=== PATIENT | male | born 1980 | race African-American/Black ===

== ENCOUNTER 2024-11-07 14:13 | Inpatient (IN) | payer BC, SELFPAY ==
[2024-11-07] VITALS (69 sets, daily range): BP systolic 98–176; BP diastolic 54–140; BMI 50.3
[2024-11-07 11:39] LABS: Glucose - Point of Care 345 mg/dl (70-99)
--- NOTE | 2024-11-07 11:45 | ED.GENMED ---
History of Present Illness
General
Chief Complaint: Chest Pain
Source: patient and ambulance crew
Exam Limitations: none
Time Seen by Provider: 11/07/24 11:34
Nursing documentation reviewed up to this point in time: agreed with
History of Present Illness
History of Present Illness:
Patient presents to ED secondary to witnessed syncopal episode while he was at work this morning. Patient denies any symptoms when he first presented to work. He was in standing position, lifting weights, when he felt generalized weakness. Denies
preceding chest pain or shortness of breath. Upon waking up, patient experiencing extreme shortness of breath along with substernal chest tightness. Denies previous history of similar symptoms. Denies smoking or drinking alcohol. Denies recent
illness. Denies recent trauma. Denies headache or neck pain. Denies nausea or vomiting. There is significant history of heart disease, with both parents having from MS. Patient has history of hypertension. Denies recent travel or
surgery.
Review of Systems
Review of Systems
Allergies reviewed?: Yes
All Other Systems: ROS reviewed and negative except as documented in HPI and ROS
Constitutional: Reports no symptoms
EENT: Reports no symptoms
Respiratory: Reports trouble breathing
Cardiac: Reports chest pain
ABD/GI: Reports no symptoms
Musculoskeletal: Reports no symptoms
Skin: Reports no symptoms
Neurological: Reports weakness
Phy Exam
Physical Exam
Physical Exam:
Physical Exam
General: moderate respiratory distress, acutely ill. afebrile. overweight. diaphoretic
Head: nc/at. eomi
Neck: supple. no meningeal signs.
Heart: tachycardic without murmur
Lungs: moderate respiratory distress. diminished breath sounds bilaterally
Abdomen: normal bowel sounds. not tender.
Neuro: alert and oriented x 3. no focal neurological deficits
Skin: no rash
Psychiatric: well kept. interactive and cooperative
Extremities: no edema. no calf tenderness.
Scores
Heart Score for Chest Pain Patients
STEMI patient?: Not applicable
Course
Orders/Labs/Results
Orders:
Orders
11/07/24
Electrocardiogram (*1) Stat
Reason for Study: Chest Pain
Comment: DONE
11/07/24 11:31
Electrocardiogram (*1) Urgent
Reason for Study: Other
Other Reason for Exam: Respiratory Distress
Cardiac Monitoring- Treatment ONCE
EKG- Treatment ONCE
IV Insert/Care/Rem.- Treatment PRN
O2 Therapy [RESP] Urgent
Titrate/Wean O2 to maintain O2 sat greater than (%): 93
Special Instructions: TO MAINTAIN CONTINUOUS O2 SATS >/= 93%
Pulse Ox/cont/shift [RESP] Urgent
Quantity: 1
Special Instructions: continuous pulse ox
11/07/24 11:37
Complete Blood Count/With Diff Urgent
Comprehensive Metabolic Panel Urgent
NT-proBNP Urgent
Troponin I Urgent
11/07/24 11:39
CT Chest/abd/pelvis Angio W/wo Urgent
Comment:
Reason For Exam: chest/abd pain
11/07/24 11:45
Nitroglycerin 100 mg/250 ml [Nitroglycerin Premix] 100 mg in 250 ml IV PER PROTOCOL
Initial dose in mcg/min, then titrate:: 50
Titrate to keep:: SBP < 160 mmHg
Titrate by mcg/min:: 5 mcg/min, may increase by 10 mcg/min if dose > 20 mcg/min
Frequency of titrations (minutes):: every 3-5 minutes
Maximum dose in mcg/min:: 200
Begin to taper infusion when:: Remained at goal for 2hrs
Taper by mcg/min:: 5 mcg/min
Frequency of taper (minutes) if patient maintains goal:: 30
Taper to off?: Yes
If infusion off & no longer maintaining goal:: Contact Provider
11/07/24 11:59
Heparin 10,000 units IV NOW STA
Nursing to Place Non Medication Order As Directed
Physician Order: PTT 6 hours after initial start of Heparin infusion
Above order entered?: Yes
11/07/24 12:00
Heparin 81088 Units/250 ml 25,000 units in 250 ml IV PER PROTOCOL
Weight to be used for heparin protocol in kilograms (kg):: 168.1
Protocol:: DVT/PE
PTT Goal Range to be used:: PTT 73 to 111 seconds
Order type:: Initial
INITIAL Infusion Dose (UNITS/KG/hr) & then follow protocol:: 18 units/kg/hr
Infusion Dose in UNITS/hr & then follow protocol (UNITS/hr):: 2,000
INFUSION RATE in mL/hr & then follow protocol (mL/hr):: 20
For DVT/PE algorithm, re-bolus for low PTT?: Yes
PTT less than or equal to 64 seconds:: Re-bolus 80 units/kg (max 10,000units). Increase by 500 units/hr
(+ 5mL/hr)
PTT 64.1 to 72.9 seconds:: Re-bolus 40 units/kg (max 5,000 units). Increase by 300 units/hr
(+ 3mL/hr)
PTT 73 to 111 seconds:: Target Range. No change in rate.
PTT 111.1 to 130.9 seconds:: Decrease rate by 300 units/hr (- 3 mL/hr)
PTT 131 to 199.9 seconds:: HOLD for 1 hr. Then decrease by 400 units/hr (- 4mL/hr)
PTT greater than or equal to 200 seconds:: HOLD for 2 hrs & Notify Provider. Then decrease by 500 units/hr
(- 5mL/hr)
Lab follow-up:: Each change, PTT q6h until 2 consecutive are therapeutic. Then
PTT daily.
11/07/24 12:08
Heparin 10,000 units IV PRN PRN
11/07/24 12:09
Heparin 5,000 units IV PRN PRN
11/07/24 12:11
PTT Urgent
Comment: Obtain baseline before beginning heparin infusion if not already collected
Prothrombin Time Urgent
Is patient on Coumadin/Warfarin?: No
Comment: ADD ON
11/07/24 12:12
PTT Routine
11/07/24 12:15
PTT Urgent
Comment: Obtain baseline before beginning heparin infusion if not already collected
11/07/24 12:38
CT Head W/o Iv Contrast Urgent
Comment:
Reason For Exam: trauma
11/07/24 12:51
Admit/Transfer Patient As Directed
Co-Sign Provider:
Level of Care: Inpatient admission
Assign to:: ICU
Physician / Group: ynes
Diagnosis: acute PE, syncope
Reason for Hospitalization: acute PE, syncope
Expected length of stay greater than two midnights?: Yes
ELOS- Estimated Length of Stay in days: 3
I certify the patient meets the requirements for IP care: Yes
11/07/24 12:56
Add On- LAB Stat
Tests Added?: PT/INR please do off ED PTT
11/07/24 14:14
Network Administrator Consult Urgent
Consulting Provider: Milton Linder
Was physician already notified: Yes
Reason for consult: PERT alert
Network Administrator Consult Urgent
Consulting Provider: Phuc Patel
Was physician already notified: Yes
Reason for consult: PERT alert
11/07/24 18:15
PTT Routine
11/07/24 20:00
Budesonide/Formoterol 160/4.5 [Symbicort 160/4.5 Mcg Inhaler] 2 puff INH R BID
11/08/24 08:00
Atorvastatin [Lipitor] 40 mg PO DAILY
Abnormal Lab Results
11/07/24
11:37
MCH 26.6 L pg
(27.0-31.0)
MCHC 32.0 L g/dL
(33.0-37.0)
MPV 10.8 H fL
(7.4-10.4)
Abs Immat Gran (auto) 0.1 H 10^3/uL
(0-0.05)
Absolute Lymphs (auto) 5.2 H 10^3/uL
(1.2-3.4)
Absolute Monos (auto) 0.7 H 10^3/uL
(0.1-0.6)
Neutrophils % 37.8 L %
(42.2-75.2)
Lymphocytes % 51.4 H %
(20.5-51.1)
Carbon Dioxide 19 L mmol/L
(22-30)
Creatinine 3.5 H mg/dL
(0.7-1.3)
Glucose 388 H mg/dl
(70-99)
POC Glucose 345 H mg/dl
(70-99)
11/07/24 11:37
11/07/24 11:37
Vital Signs
Initial and Last Documented VS:
Initial Vital Signs
Pulse BP Pulse Ox
107 168/137 91
11/07/24 11:32 11/07/24 11:32 11/07/24 11:32
Last Documented Vital Signs
Temp Pulse Resp BP Pulse Ox
99 F 105 16 144/112 95
11/07/24 14:49 11/07/24 15:05 11/07/24 15:05 11/07/24 15:05 11/07/24 15:05
MDM/Problems Addressed
MDM/Problems Addressed:
Stat CT angiogram of chest abdomen pelvis ordered, with significant clinical suspicion for acute dissection, less likely pulmonary embolism.
Preliminary CT angiogram report received from radiology -right-sided PE without obvious evidence of right heart strain.
Patient requiring high flow oxygen secondary to hypoxia. Blood pressure we continue to monitor.
Discussed with on-call pulmonary, Dr. Linder, who recommends IR review CT angiogram for potential IR intervention, i.e. local IV tPA administration.
Discussed with IR attending, Dr. Tuttle, via Sandy text, with request to review CTA
Patient started on heparin protocol and will be admitted to ICU for further evaluation and treatment.
Discussed with patient's spouse at bedside and discussed all findings.
Critical care statement: A total of 40 minutes of critical care time was provided for this patient. This includes management of unstable vital signs, evaluation of the patient at bedside, reviewing the patient's pertinent medical records, discussion
with consultants, review of old EKGs and review of pertinent medical records. This time with separate from time utilized to perform the aforementioned documented procedures
*Pulse Oximetry
SaO2: 91
Oxygen Mode of Delivery: Non-rebreather mask
Patient hypoxic: yes
*EKG
Interpreted by ED Provider?: Yes
EKG Intrepretation Date: 11/07/24
Heart Rate: 104
Rate: tachycardiac
Rhythm: sinus
[place]: normal axis
Interval: normal interval
Ischemia: ST depression
*Critical Care Note
Total Time (30-74mins, 75-104mins- exclusive of procedures): 40 min
ED Attending Note
-
Portions of this chart may have been created with voice recognition software.� Occasional wrong word or��sound alike� substitutions may have occurred due to the inherent limitations of voice recognition software.
Discharge Plan
Departure
Patient Disposition: Admit
Date of Disposition: 11/07/24
Time of Disposition: 12:25
Admit to: ICU
Presentation/result/management discussed w/ accepting MD/DO: Hospitalist
Discharge Problem:
Pulmonary embolism
Interventions
Interventions:
*Risk Screen - Suicide Last Done: 11/07/24 14:44
*Nursing Disposition Last Done: 11/07/24 14:17
ED- Cardiac Assessment Last Done: 11/07/24 11:40
Discharge Date and Time
Discharge Date/Time: 11/07/24 14:18
[2024-11-07] MEDS: HEPARIN 10000 UNITS IV (12:04)
[2024-11-07] MEDS: HEPARIN 25000 UNITS/250 ML IV (12:07)
[2024-11-07 12:38] LABS: Hematocrit 43.1 % (39.0-52.0); Hemoglobin 13.8 g/dL (13.0-18.0); Mean Corp Hgb Conc. 32.0 g/dL (33.0-37.0); Mean Corpuscular Volume 83.0 fL (80.0-94.0); Platelet Count 226 10^3/uL (130-400); Red Cell Dist. Width 14.4 % (11.5-14.5)
[2024-11-07 12:43] LABS: APTT 26.8 Sec (23.4-35.0)
--- NOTE | 2024-11-07 12:44 | HPS.HSE ---
Family Physician
-
Family Physician: NO INTERVIEW UNKNOWN
Chief Complaint
-
Syncope, Hypoxic
History of Present Illness
HPI
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
- passed out at work
- POS prodromal symptoms: lightheadedness, felt warm and felt unwell
- Witness: No convulsions
- Post syncopal episode - SoB and Chest discomfort
- Repost B/l leg swelling last few days
- 911 called by co workers
- No prior HX DVT/PE
At ER
on HFO2
No more Chest discomfort
Risk factors:
- No recent surgery
- No recent travelling
- No recent illness
- No HX ICH
- No recent tooth extraction
Medical History
Past Medical History
Past Medical History: Reports HTN, Hypercholesterolemia and Other (JACKY on CPAP HS )
Past Surgical History: Reports None
Social History
Tobacco: Non-smoker
Alcohol: None
Employment: Employed
Family History
Family History: Not pertinent
Allergies / Home Medications
Allergies reflects when Allergies were last updated in [facility] Study [facility].
Home Medications with original date entered in [facility] Study [facility]
Allergy/Medication List:
Allergies
Allergy/AdvReac Type Severity Reaction Status Date / Time
No Known Allergies Allergy Unverified 11/07/24 12:03
Home Medications
atorvastatin 40 mg tablet 40 mg PO DAILY 11/07/24
budesonide 160 mcg-glycopyr 9 mcg-formot 4.8 mcg/actuation HFA inhaler (Breztri Aerosphere) 1 inh inhalation BID 11/07/24
cholecalciferol (vitamin D3) 25 mcg (1,000 unit) tablet (Vitamin D3) 25 mcg PO DAILY 11/07/24
fluticasone propionate 50 mcg/actuation nasal spray,suspension 1 spray intranasal DAILYPRN PRN congestion 11/07/24
nifedipine 60 mg tablet,extended release 60 mg PO DAILY 11/07/24
sildenafil 100 mg tablet 100 mg PO PRN PRN erectile dysfunction 11/07/24
vitamin E 268 mg (400 unit) capsule 268 mg PO DAILY 11/07/24
Review of Systems
-
Constitutional: Reports No Symptoms
EENT: Reports No Symptoms
Cardiac: Reports No Symptoms, Chest Pain and Syncope
Abdomen/GI: Reports No Symptoms
: Reports No Symptoms
Musculoskeletal: Reports No Symptoms
Skin: Reports No Symptoms
Neurological: Reports Other (syncope )
Endocrine: Reports No Symptoms
Hematologic/Lymphatic: Reports No Symptoms
Psych: Reports No Symptoms
Physical Exam
Vital Signs
Vital Signs
Pulse Resp BP Pulse Ox
111 19 111/64 96
11/07/24 12:20 11/07/24 12:20 11/07/24 12:24 11/07/24 12:20
Physical Exam
General: Comfortable, Conversant and Respiratory Distress
HEENT: NormoCephalic, Moist mucous membranes and Atraumatic
Respiratory: Clear; No Wheezes, Rales or Rhonchi
Cardiac: S1/S2, Regular Rhythm and Tachycardia; No Murmur or Rub
GI: Soft, Non Tender, Non Distended and Normal Bowel Sounds; No Organomegaly
Rectal: Deferred by Provider
Musculoskeletal: No Clubbing, No Cyanosis and No Edema
Skin: No Rash
Neuro: Nonfocal/grossly intact
Psych: Intact Judgment/Insight
Laboratory Results
-
11/07/24 11:37
Laboratory Results
APTT 26.8 Sec (23.4-35.0) 11/07/24 12:11
Data Reviewed
-
CT Scan: Report Reviewed by me
Medical Tests (Nuc Med, Echo, EKG etc): Report Reviewed by me
Lab Data: Labs Reviewed by me
Impression/Plan
-
Relevant Data
Abnormal Lab Results
11/07/24
11:37
MCH 26.6 L
MCHC 32.0 L
MPV 10.8 H
Carbon Dioxide 19 L
Glucose 388 H
POC Glucose 345 H
EKG
SINUS TACHYCARDIA WITH SHORT CO
MARKED ST ABNORMALITY, POSSIBLE INFERIOR SUBENDOCARDIAL INJURY
ABNORMAL ECG
NO PREVIOUS ECGS AVAILABLE
CTA APC final report pending
NO PRIOR hospitalist admission:
ASSESSMENT & PLAN
Pending Rx reconciliation
Acute R sided PE
Acute dyspnea with acute hypoxic RF with inital POx 90% requring HFO2
Tachycardic , Syncope and chest disconfort - clinically under RH strain
No evidence of heart strain on CTA.
- PERT alert
- c/w HFO2
- Hold Vit E
- Heparin gtt
- stop NTG gtt ordered by ER
- IR to review CTA for potential IV tPA
- ICU consulted
JACKY
- on [employer] HELPER CPAP HS
Essential HTN
- Hold Nifedipine
HLD
- on Atorvastatin
DVT Px: Heparin gtt
Full code
ICU
--- NOTE | 2024-11-07 12:45 | CON.INTV ---
Addendum entered and electronically signed by Milton Linder MD 11/07/24 15:01:
serum creatinine now reported significantly elevated at 3.5
Some mild acidosis was also noted in addition to his hyperglycemia
Interventional radiology notified of serum creatinine elevation-minimal dye will need to be utilized-hopefully catheter can be placed, tPA can be given, PA pressures can be measured and may be thrombectomy, however, risks of additional dye induced
kidney injury versus benefits will need to be followed
Check A1c
Reviewed with critical care nursing
Original Note:
Consultation
Consultation Request
Date/Time Consultation Requested: 11/07/2024- 40 5 PM
Date/Time Consultation Performed: 11/07/2024- 40 5 PM
Requesting Provider: Hospitalist
Performing Provider: Dr. Linder
Reason for Consultation: Pulmonary embolism/critical care management
Medical History
-
Chief Complaint: Pulmonary embolism
History of Present Illness:
44-year-old obese non-smoking male presented with sudden onset shortness of breath, witnessed syncopal episode noted to have significant shortness of breath, tachypnea, tachycardia, hypertension and significant hypoxemia requiring high flow oxygen
subsequently noted to have large clot burden pulmonary emboli-histology manager consulted for pulmonary embolism/critical care management 11/07/2024. He has never had a clot. He is not sedentary, ever, he does sit on a chair a lot during his daytime job.
He lives in [place] and works here in [place]. He has never had a clot. He does have a family history of clotting. He was at work and had some shortness of breath and had a near syncopal episode. He denies any current chest pain,
pleurisy, hemoptysis, abdominal pain, and admits to some mild swelling. He states that when he drives in a car his legs do swell up a bit. He did not complain of any abdominal pain, nausea, recent illness. He works out routinely. He does have a
CPAP machine that he wears at nighttime. He goes to [facility] for his [facility]. 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
Past Medical History
Past Medical History: None (Obesity. Hypertension. JACKY on CPAP. Asthma-mild intermittent on albuterol as needed.)
Social History
Tobacco: Non-smoker
Drug: None
Living: With Family
Occupational Exposures: No known asbestos exposure
Environmental Exposures: No known tuberculosis exposure
Family History
Family History: Reviewed & Not Pertinent (Father-'clot', possibly pulmonary embolism) and CAD
Allergies / Home Medications
Allergies
Allergy/AdvReac Type Severity Reaction Status Date / Time
No Known Allergies Allergy Unverified 11/07/24 12:03
Home Medications
�Medication �Instructions �Recorded �Confirmed �Last Taken �Type
atorvastatin 40 mg tablet 40 mg PO DAILY 11/07/24 11/07/24 11/07/24 History
20
budesonide 160 mcg-glycopyr 9 1 inh inhalation BID 11/07/24 11/07/24 Unknown History
mcg-formot 4.8 mcg/actuation HFA
inhaler (Breztri Aerosphere)
cholecalciferol (vitamin D3) 25 25 mcg PO DAILY 11/07/24 11/07/24 Unknown History
mcg (1,000 unit) tablet (Vitamin
D3)
fluticasone propionate 50 1 spray intranasal DAILYPRN PRN 11/07/24 11/07/24 Unknown History
mcg/actuation nasal congestion
spray,suspension
nifedipine 60 mg tablet,extended 60 mg PO DAILY 11/07/24 11/07/24 11/07/24 History
release
sildenafil 100 mg tablet 100 mg PO PRN PRN erectile 11/07/24 11/07/24 Unknown History
dysfunction
vitamin E 268 mg (400 unit) capsule 268 mg PO DAILY 11/07/24 11/07/24 Unknown History
Review of Systems
-
Unable to Obtain full review of systems at this time due to: Other ( per HPI)
Vitals / Labs / Diagnostic Testing
Vital Signs
Pulse Resp BP Pulse Ox
111 19 111/64 96
11/07/24 12:20 11/07/24 12:20 11/07/24 12:24 11/07/24 12:20
Lab Data
11/07/24 11:37
Laboratory Results
11/07/24
12:11
APTT 26.8
Diagnostic Testing:
Physical Exam
-
Exam:
Well-nourished and well-developed in no apparent distress
HEENT-atraumatic, normocephalic
Neck-supple, no JVD, no bruit
Heart-regular rate and rhythm-no murmurs, rubs or gallops
Chest-clear to auscultation, no wheezes, crackles
Back-no tenderness
Abdomen-soft, nontender, nondistended, no hepatosplenomegaly
Extremities-no cyanosis, clubbing, edema and good peripheral pulses
Integument-intact, no rashes, lesions or ecchymosis
Neurology-alert and oriented, nonfocal motor and sensory exam
Assessment
-
44-year-old obese non-smoking male presented with sudden onset shortness of breath, witnessed syncopal episode noted to have significant shortness of breath, tachypnea, tachycardia, hypertension and significant hypoxemia requiring high flow oxygen
subsequently noted to have large clot burden pulmonary emboli-histology manager consulted for pulmonary embolism/critical care management 11/07/2024.
Submassive unprovoked pulmonary emboli with severe hypoxemia, tachycardia and syncopal episode
PESI-116 class IV-high risk, had mild mental status changes which would place his score 176-class V-high risk
Hyperglycemia
Conditions present prior to admission:
Obesity
Hypertension
Asthma-mild intermittent
JACKY on CPAP
Family history [id number] PE
Plan
Patient will be admitted to medical intensive care unit for close observation
Supplemental oxygen as needed-currently on high flow
Aspiration precautions
Incentive spirometry
CT chest personally reviewed-significant right sided clot burden with near complete occlusion right mainstem pulmonary artery
Check echocardiogram
Check lower extremity ultrasound
Patient will eventual require hypercoagulable workup as unprovoked
Full PESI summarized above
Heparin drip initiated
Benefits and risks of thrombolytics therapy were reviewed
Patient has significant tachycardia, significant hypoxemia and had syncopal episode currently-benefits of thrombolytic therapy and possible thrombectomy outweigh the risks-Dr. Linder reviewed with ER physician and interventional radiology
Eventual conversion to oral anticoagulation for minimum of 3-6 months
Hypercoagulable workup/hematology evaluation is recommended with family history and unprovoked nature of this large life-threatening clot
Bedrest �24 hours
Follow hemoglobin
Insulin supplementation as needed
Baseline A1c
DVT prophylaxis-on full anticoagulation
Early nutrition
Early mobilization
Outpatient pulmonary [id number] has freight receiver in [place]
Outpatient sleep apnea [id number] follows at [facility] in [place] for sleep apnea
Outpatient appropriate malignancy screening including colonoscopy and prostate exam
updated at the bedside and benefits and risks of thrombolytics versus conservative standard of care management with anticoagulation were reviewed with patient and extensively. Both understand there is increased risks with thrombolytic
therapy, however, more rapid resolution and critical nature of his current illness dictates more aggressive thrombolytic/thrombectomy maneuver
Recommend outpatient pulmonary/sleep disorders [id number], follow-up CT chest and possible lower extremity ultrasound, hematologic evaluation after appropriate therapy and sleep apnea workup
Critical care statement: A total of 65 minutes of critical care time was provided for this patient today. This includes management of unstable vital signs, evaluation for thrombolytic therapy, management of large pulmonary embolism, evaluation of
the patient at bedside, reviewing the patient's pertinent medical records including radiographs, microbiology, laboratory evaluations, and discussion with primary team, consultants, pharmacy, and critical care nursing.
Diagnostic data:
CT chest abdomen and pelvis 11/07/2024-no official reading, to my eye large clot burden right sided pulmonary emboli with near complete occlusion, minimal left-sided clot burden no severe right sided strain
Data Reviewed
-
PFT: Report reviewed by me
EKG: Report reviewed by me
CT Scan: Image personally visualized and interpreted and Report reviewed by me
Medical Tests (Nuc Med, Echo etc): Report reviewed by me
Labs: Labs reviewed by me
Critical Care Time (in minutes): 65
[2024-11-07 12:49] LABS: ALT (SGPT) 35 U/L (0-50); AST (SGOT) 37 U/L (17-59); Albumin 4.1 g/dl (3.5-5.0); Alkaline Phosphatase 109 U/L (38-126); Blood Urea Nitrogen 18 mg/dl (9-20); Calcium 8.8 mg/dl (8.4-10.2); Carbon Dioxide 19 mmol/L (22-30); Chloride 102 mmol/L (98-107); Glucose 388 mg/dl (70-99); Potassium 3.8 mmol/L (3.5-5.1); Sodium 136 mmol/L (135-145); Total Protein 7.1 g/dl (6.3-8.2)
[2024-11-07 12:54] LABS: Troponin I < 0.012 ng/ml
[2024-11-07 12:55] LABS: Nucleated Red Blood Cells % 0 % (-)
[2024-11-07 13:33] LABS: INR 0.98; PT 13.5 Sec (11.4-14.6)
--- NOTE | 2024-11-07 14:26 | CON.INTV ---
Consultation
Consultation Request
Date/Time Consultation Requested: 2:00 11/07/24
Date/Time Consultation Performed: 2:15 11/07/24
Medical History
-
History of Present Illness:
44yoM PMH asthma, JACKY presenting from syncopal episode from work.
Presented to ED from syncopal episode complaining of severe SOB put on high flow O2. Denies chest pain, calf pain. Reports one sided knee pain. Denies travel, long car ride. 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 He denies a personal hx of clots or
clotting disorder.
Pt follows [facility] with sebd teacher for asthma and JACKY. Uses albuterol as needed. Wears CPAP at home. Served in the [employer] for 10 years.
History from in the room. She reports has a history of 'enlarged heart' and 'thick blood' but no formal diagnosis that she knows. No hx clots. He sees a sweep press operator for hypertension. Denies DM but reports he has been diagnosed as pre-diabetic.
reports that he works here in [place] and commutes an hour from [place] each day, otherwise no long drives or immobility.
FH: father has hx of clot. unknown location, possibly lung
Past Medical History
Past Medical History: Asthma and Other (JACKY)
Social History
Personal:
Allergies / Home Medications
Allergies
Allergy/AdvReac Type Severity Reaction Status Date / Time
No Known Allergies Allergy Unverified 11/07/24 12:03
Home Medications
�Medication �Instructions �Recorded �Confirmed �Last Taken �Type
atorvastatin 40 mg tablet 40 mg PO DAILY 11/07/24 11/07/24 11/07/24 History
20
budesonide 160 mcg-glycopyr 9 1 inh inhalation BID 11/07/24 11/07/24 Unknown History
mcg-formot 4.8 mcg/actuation HFA
inhaler (Breztri Aerosphere)
cholecalciferol (vitamin D3) 25 25 mcg PO DAILY 11/07/24 11/07/24 Unknown History
mcg (1,000 unit) tablet (Vitamin
D3)
fluticasone propionate 50 1 spray intranasal DAILYPRN PRN 11/07/24 11/07/24 Unknown History
mcg/actuation nasal congestion
spray,suspension
nifedipine 60 mg tablet,extended 60 mg PO DAILY 11/07/24 11/07/24 11/07/24 History
release
sildenafil 100 mg tablet 100 mg PO PRN PRN erectile 11/07/24 11/07/24 Unknown History
dysfunction
vitamin E 268 mg (400 unit) capsule 268 mg PO DAILY 11/07/24 11/07/24 Unknown History
Review of Systems
Vitals / Labs / Diagnostic Testing
Vital Signs
Pulse Resp BP Pulse Ox
105 13 139/104 96
11/07/24 13:40 11/07/24 13:40 11/07/24 13:40 11/07/24 13:40
Lab Data
11/07/24 11:37
11/07/24 11:37
Laboratory Results
11/07/24
12:11
PT 13.5
INR 0.98
APTT 26.8
Diagnostic Testing:
Physical Exam
-
HEENT: Normocephalic, Anicteric and Moist Mucous Membranes
Cardiovascular: S1/S2 (tachycardic, no RV heave or P2)
Respiratory: Clear
Neurology: AO x 3
General: Respiratory Distress (on high flow O2)
Assessment
-
44-year-old obese non-smoking male PMH asthma, JACKY presented with sudden onset shortness of breath, witnessed syncopal episode noted to have significant shortness of breath, tachypnea, tachycardia, hypertension and significant hypoxemia requiring
high flow oxygen subsequently noted to have large clot burden pulmonary emboli-awning installer consulted for pulmonary embolism/critical care management 11/07/2024.
Elevated Cr 3.5 with no known CKD. Hyperglycemic to 360. PT 13.5 INR 0.98. On no current blood thinners. Unprovoked PE. Possible FH.
Submassive unprovoked pulmonary emboli with severe hypoxemia, tachycardia and syncopal episode
PESI-116 class IV-high risk, had mild mental status changes which would place his score 176-class V-high risk
Hyperglycemia
Conditions present prior to admission:
Obesity
Hypertension
Plan
Neuro:
Concerns for AMS in ED. Monitor mental status post TPA.
CT head negative for acute hemorrhage.
Pulm:
Supplemental oxygen as needed-currently on high flow
Aspiration precautions
Incentive spirometry
CT chest personally reviewed-significant right sided clot burden with near complete occlusion right mainstem pulmonary artery
Heparin drip initiated
Patient has significant tachycardia, significant hypoxemia and had syncopal episode currently-benefits of thrombolytic therapy and possible thrombectomy outweigh the risks-Dr. Linder reviewed with ER physician and interventional radiology. Sent
down to IR.
Continue home medications
Cardio:
EKG: sinus tachycardia with short [place] [facility] abnormality, possible inferior subendocardial injury
Check echocardiogram
Troponin <0.012. BNP <20
/renal:
Cr 3.5. No hx renal pathology or known baseline Cr
Monitor I+O
Nephrology Consult
Heme:
Bedrest �24 hours
Follow hemoglobin
Check lower extremity ultrasound
Patient will eventual require hypercoagulable workup as unprovoked
Endocrine:
No hx DM. Baseline A1c
Insulin supplementation as needed. Sliding scale started.
DVT prophylaxis-on full anticoagulation
Early nutrition- NPO for procedure
Early mobilization
Outpatient pulmonary follow-up. Follows at [facility].
Diagnostic data:
CT chest abdomen and pelvis 11/07/2024-no official reading, to my eye large clot burden right sided pulmonary emboli with near complete occlusion, minimal left-sided clot burden no severe right sided strain
[2024-11-07 14:29] LABS: Estimated Creatinine Clearance 42 ml/min; eGFR 20.91
--- NOTE | 2024-11-07 15:17 | W.CON.NEPH ---
Consultation
-
Date/Time Consultation Requested: 11/07/2024 3:15 PM
Date/Time Consultation Performed: 11/07/2024 3:20 PM
Requesting Provider: Dr. Linder
Performing Provider: Dr. Conde
Reason for Consultation: Acute kidney injury
Medical History
-
Chief Complaint: Acute kidney injury
History of Present Illness:
The patient is a 44-year-old male with a past medical history of hypertension maintained chronically on nifedipine for his hypertension. He has a history of obstructive sleep apnea and utilizes CPAP. He has a history of dyslipidemia and is
maintained on statin therapy. The patient presented with sudden onset shortness of breath, witnessed syncopal episode noted to have significant shortness of breath, tachypnea, tachycardia, hypertension and significant hypoxemia requiring high flow
oxygen subsequently noted to have large clot burden pulmonary emboli-routeman consulted for pulmonary embolism/critical care management 11/07/2024. He has never had a clot. He is not sedentary, ever, he does sit on a chair a lot during his
daytime job. He lives in [place] and works here in [place]. He has never had a clot. He does have a family history of clotting. He was at work and had some shortness of breath and had a near syncopal episode. He denies any current chest
pain, pleurisy, hemoptysis, abdominal pain, and admits to some mild swelling. He states that when he drives in a car his legs do swell up a bit. He did not complain of any abdominal pain, nausea, recent illness. He works out routinely. He does
have a CPAP machine that he wears at nighttime. He goes to the [place] for his CPAP. 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 Nephrology was consulted for acute renal failure his creatinine was 3.5 on
presentation.
Past Medical History
Hypertension
Obstructive sleep apnea
Asthma
Dyslipidemia
Social History
Tobacco: Non-Smoker
Drug: None
Personal:
Family History
No CKD
Father with history of clot
Allergies / Home Medications
Allergy/AdvReac Type Severity Reaction Status Date / Time
No Known Allergies Allergy Unverified 11/07/24 12:03
�Medication �Instructions �Recorded �Confirmed �Type
atorvastatin 40 mg tablet 40 mg PO DAILY High Cholesterol 11/07/24 11/07/24 History
budesonide 160 mcg-glycopyr 9 1 inh inhalation BID 11/07/24 11/07/24 History
mcg-formot 4.8 mcg/actuation HFA Lung/Breathing Issues
inhaler (Breztri Aerosphere)
cholecalciferol (vitamin D3) 25 25 mcg PO DAILY Supplement 11/07/24 11/07/24 History
mcg (1,000 unit) tablet (Vitamin
D3)
fluticasone propionate 50 1 spray intranasal DAILYPRN PRN 11/07/24 11/07/24 History
mcg/actuation nasal congestion
spray,suspension
nifedipine 60 mg tablet,extended 60 mg PO DAILY Blood Pressure 11/07/24 11/07/24 History
release
sildenafil 100 mg tablet 100 mg PO PRN PRN erectile 11/07/24 11/07/24 History
dysfunction
vitamin E 268 mg (400 unit) capsule 268 mg PO DAILY Supplement 11/07/24 11/07/24 History
Physical Exam
Vital Signs
Vital Signs
Temp Pulse Resp BP Pulse Ox
99 F 105 16 144/112 95
11/07/24 14:49 11/07/24 15:05 11/07/24 15:05 11/07/24 15:05 11/07/24 15:05
Lab Results
11/07/24 11:37
11/07/24 11:37
WBC 10.1 10^3/uL (4.8-10.8) 11/07/24 11:37
RBC 5.19 10^6/uL (4.70-6.10) 11/07/24 11:37
Hgb 13.8 g/dL (13.0-18.0) 11/07/24 11:37
Hct 43.1 % (39.0-52.0) 11/07/24 11:37
Plt Count 226 10^3/uL (130-400) 11/07/24 11:37
Sodium 136 mmol/L (135-145) 11/07/24 11:37
Potassium 3.8 mmol/L (3.5-5.1) 11/07/24 11:37
Chloride 102 mmol/L (98-107) 11/07/24 11:37
Carbon Dioxide 19 mmol/L (22-30) L 11/07/24 11:37
BUN 18 mg/dl (9-20) 11/07/24 11:37
Creatinine 3.5 mg/dL (0.7-1.3) H 11/07/24 11:37
eGFR 20.91 11/07/24 11:37
Glucose 388 mg/dl (70-99) H 11/07/24 11:37
Calcium 8.8 mg/dl (8.4-10.2) 11/07/24 11:37
Stc-E-Zqytgjccmgc Pept < 20.0 pg/ml 11/07/24 11:37
Albumin 4.1 g/dl (3.5-5.0) 11/07/24 11:37
Physical Exam
General: AOx3, Nontoxic , NAD,obese
HEENT: PERRL, EOMI, Anicteric, Conjunctivae Clear, Ear/Nose Intact, Hearing Normal, Oropharynx Clear/Moist, Dentition Intact, Facial Symmetry, Neck Supple, Neck: Trachea Midline, No JVD and No Thyromegaly, no Bruits
Respiratory: Coarse to auscultation bilaterally with normal lung exersion
Cardiac: S1/S2 and Regular Rate/Rhythm tachycardic
Breast: Deferred by me
Abdomen: Soft, Nontender, Nondistended, Normal Bowel Sounds and No Hepatosplenomegaly
Rectal: Deferred by Provider
Genito-urinary: No Costovertebral Tenderness
Extremities: No Clubbing, No Cyanosis and trace Edema
Skin: No Rash or open lesions
Neuro: Nonfocal/Grossly Intact, CN II-XII (Intact) and Strength (Musculoskeletal exam 5 out of 5 both upper and lower extremities)
Hematologic/Lymphatic: No Cervical Lymphadenopathy, No Submandibular Lymphadenopathy and No Supraclavicular Lymphadenopathy
Psych: Mood/afflect pleasant, Insight/judgement good and Appropriate
Vascular: plus 2 pedal and radial pulses
Data Reviewed
-
CT Scan: Report Reviewed by me
Labs: Labs Reviewed by me (BMP CBC)
Assessment/Plan
-
Impression:
Submassive unprovoked pulmonary emboli with severe hypoxemia, tachycardia and syncopal episode (right main pulmonary artery)
Acute kidney injury (3.5)
Hypertension emergency
Dyslipidemia
Obstructive sleep
Plan:
ADRIANA:
- Unfortunately creatinine on presentation was 3.[address] angiogram
-Discussed with who will try to obtain baseline creatinine from primary care physician
- Acute kidney injury risk will be escalated following contrast administrations
- No acute dialysis requirement but will monitor closely
- Will obtain urinalysis urine protein to creatinine ratio kidney and bladder ultrasound to workup for CKD
- Will also obtain autoimmune serology serologies
-Patient is critically ill with acute renal failure and acute pulmonary embolism status post thrombolytic directed therapy via IR
-I will utilize Cardene drip for blood pressure control to keep systolic blood pressure between 130-160 with diastolic pressures between 80-95
- 35 minutes critical care time spent with patient care
- Patient critically ill with uncontrolled hypertension and acute pulmonary artery embolism requiring directed lytic therapy
Total Time Spent with Patient (in minutes): 35mintues
[2024-11-07 15:49] LABS: Glucose - Point of Care 239 mg/dl (70-99)
[2024-11-07] MEDS: NOVOLOG FLEXPEN 8 UNITS SC (15:57)
[2024-11-07] MEDS: CATHFLO/ACTIVASE 1000 MG INF CATH (16:07)
--- NOTE | 2024-11-07 16:20 | W.PN.IRAD.PR ---
Procedure Note
-
Limited pulmonary arteriography performed secondary to renal insufficiency and inability to position table secondary to weight limitation. Right sided central emboli confirmed as seen previous CTA. Mean PA pressure 33 mmHg right, 32 mmHg left.
Thrombolysis infusion initiated at 1mg/hr via infusion catheter in right PA. Heparin via IV at 500 units/hr. The 7 Fr catheter is occlusive in the 7 Fr R CF vein sheath, no sheath infusion.
[2024-11-07] MEDS: CARDENE 200 IV ×2 (17:13→23:30)
[2024-11-07] MEDS: NOVOLOG FLEXPEN-MODERATE RESISTANCE SC ×2 (17:45→23:26)
[2024-11-07 18:20] LABS: Hematocrit 39.0 % (39.0-52.0); Hemoglobin 13.0 g/dL (13.0-18.0); Mean Corp Hgb Conc. 33.3 g/dL (33.0-37.0); Mean Corpuscular Volume 79.1 fL (80.0-94.0); Platelet Count 212 10^3/uL (130-400); Red Cell Dist. Width 14.6 % (11.5-14.5)
[2024-11-07 18:35] LABS: Urine Character Clear (Clear)
[2024-11-07 18:37] LABS: Glucose - Point of Care 171 mg/dl (70-99)
[2024-11-07 18:45] LABS: Urine Squamous Cell 0-2 /LPF (Few)
[2024-11-07 18:46] LABS: Urine White Cell 0-2 /HPF (0-5)
[2024-11-07 19:16] LABS: INR 1.02; PT 13.9 Sec (11.4-14.6)
[2024-11-07 19:17] LABS: APTT 40.4 Sec (23.4-35.0); Fibrinogen 396 MG/DL (199-459)
--- NOTE | 2024-11-07 19:17 | PTCARENOTE ---
Updated assessment vital signs ongoing and as documented. Patient received from ED then rushed immediately to IR. Received back again from IR. Right femoral venous sheath with TPA infusing. Follow up now vascular heparin. Serial labs and urine
collected. Presently TPA, heparin and Cardene infusing continue to follow up orders and plan of cares. Consults with at bedside. [employer] Car Cleaner team and nephrology team with patient continue to update plan of cares and follow up concerns in
ICU. Supportive cares and teaching ongoing.
[2024-11-07] MEDS: OFIRMEV 100 IV (20:53)
--- NOTE | 2024-11-07 21:20 | PTCARENOTE ---
Received pt from previous RN. Pt is AAOx3, neurovascular checks per protocol, flat. Sinus tach/NSR on the monitor. Cardene gtt for goal SBP 140-160 (see worklist). Pt on midflow 15L O2 sat 93%, HORTON, lungs diminished. Pt uses the urinal. Pt with
bruised, swollen lip. TPA and Heparin gtts maintained (see orders). Ofirmev ordered for back pain (see MAR). Mouth care provided. at bedside. Call galo in reach. Safe environment maintained.
--- NOTE | 2024-11-07 21:49 | PTCARENOTE ---
Received pt from previous RN. Pt is AAOx3, neurovascular checks per protocol, flat. Sinus tach/NSR on the monitor. Cardene gtt for goal SBP 140-160 (see worklist). Pt on midflow 15L O2 sat 93%, HORTON, lungs diminished. Pt uses the urinal. Pt with
bruised, swollen lip. TPA infusing through right femoral venous sheath. Heparin gtt. Ofirmev ordered for back pain (see MAR). Mouth care provided. at bedside. Call galo in reach. Safe environment maintained.
[2024-11-07] MEDS: MELATONIN 10 MG PO (21:51)
[2024-11-07 23:36] LABS: Glucose - Point of Care 113 mg/dl (70-99)
[2024-11-08] VITALS (42 sets, daily range): BP systolic 97–167; BP diastolic 64–104; PULSE 98; BMI 46.4
--- NOTE | 2024-11-08 00:18 | PTCARENOTE ---
Systems reviewed, no new changes in assessment. Cardene gtt titrated per protocol (see worklist). Labs provided. Call galo in reach. Safe environment maintained.
[2024-11-08 00:30] LABS: INR 0.99; PT 13.6 Sec (11.4-14.6)
[2024-11-08 00:31] LABS: APTT 28.1 Sec (23.4-35.0); Fibrinogen 406 MG/DL (199-459)
[2024-11-08 00:39] LABS: Hematocrit 38.5 % (39.0-52.0); Hemoglobin 12.8 g/dL (13.0-18.0); Mean Corp Hgb Conc. 33.2 g/dL (33.0-37.0); Mean Corpuscular Volume 79.9 fL (80.0-94.0); Platelet Count 198 10^3/uL (130-400); Red Cell Dist. Width 14.6 % (11.5-14.5)
[2024-11-08] MEDS: CATHFLO/ACTIVASE 1000 MG INF CATH (01:40)
--- NOTE | 2024-11-08 05:03 | PTCARENOTE ---
Systems reviewed, no new changes in assessment. AM labs provided. at bedside. Safe environment maintained.
[2024-11-08] MEDS: NOVOLOG FLEXPEN-MODERATE RESISTANCE 1 UNITS SC ×2 (05:12→12:35)
[2024-11-08 05:18] LABS: Glucose - Point of Care 175 mg/dl (70-99)
[2024-11-08 05:34] LABS: Hematocrit 38.3 % (39.0-52.0); Hemoglobin 12.8 g/dL (13.0-18.0); Mean Corp Hgb Conc. 33.4 g/dL (33.0-37.0); Mean Corpuscular Volume 80.3 fL (80.0-94.0); Platelet Count 181 10^3/uL (130-400); Red Cell Dist. Width 14.7 % (11.5-14.5)
[2024-11-08 05:48] LABS: Fibrinogen 373 MG/DL (199-459); INR 1.08; PT 14.6 Sec (11.4-14.6)
[2024-11-08] MEDS: OFIRMEV 100 IV ×2 (05:50→13:58)
[2024-11-08 06:03] LABS: Blood Urea Nitrogen 15 mg/dl (9-20); Calcium 8.9 mg/dl (8.4-10.2); Carbon Dioxide 27 mmol/L (22-30); Chloride 106 mmol/L (98-107); Estimated Creatinine Clearance 109 ml/min; Glucose 177 mg/dl (70-99); Potassium 4.4 mmol/L (3.5-5.1); Sodium 138 mmol/L (135-145); Uric Acid 6.5 mg/dl (3.5-8.5); eGFR > 60.00
[2024-11-08 06:24] LABS: APTT 30.1 Sec (23.4-35.0)
--- NOTE | 2024-11-08 07:36 | W.PN.INTV ---
Today's Communication / Plan
Recommendations
Thrombolysis successful and will be discontinued
Continue heparin
Eventually convert to oral anticoagulant for minimum of 3-6 months with subsequent hematology evaluation
Monitor renal function
Diabetes education and consider diabetic nurse practitioner consultation
Wean nicardipine and add oral nifedipine
Assessment
-
44-year-old obese non-smoking male presented with sudden onset shortness of breath, witnessed syncopal episode noted to have significant shortness of breath, tachypnea, tachycardia, hypertension and significant hypoxemia requiring high flow oxygen
subsequently noted to have large clot burden pulmonary emboli-cell tower climber consulted for pulmonary embolism/critical care management 11/07/2024.
Submassive unprovoked pulmonary emboli with severe hypoxemia, tachycardia and syncopal episode
PESI-116 class IV-high risk, had mild mental status changes which would place his score 176-class V-high risk
Hyperglycemia-A1c 8.8%
ADRIANA
Hypertensive emergency
Conditions present prior to admission:
Obesity
Hypertension
Asthma-mild intermittent
JACKY on CPAP
Family history [id number] PE
Plan
Remains critically ill but improved hemodynamically with less oxygen requirements
Supplemental oxygen as needed-was on high flow-now reduced to mid flow 8 L - 95% saturation
Aspiration precautions per protocol
Incentive spirometry encouraged
Begin home Breztri as well as albuterol as needed
Bring home CPAP--Will bleed oxygen through CPAP
Assess discharge supplemental oxygen needs
CT chest personally reviewed-significant right sided clot burden with near complete occlusion right mainstem pulmonary artery
Echocardiogram 11/07/2024-EF 60-65%, stage I diastolic dysfunction, mildly dilated right ventricular cavity size, PA systolic 44
Lower extremity ultrasound 11/08/24-no evidence for DVT bilaterally
Patient will eventual require hypercoagulable workup as unprovoked
Full PESI summarized above
Heparin drip continues
Benefits and risks of thrombolytics therapy were reviewed with patient and
Patient has significant tachycardia, significant hypoxemia and had syncopal episode currently-benefits of thrombolytic therapy and possible thrombectomy outweigh the risks-Dr. Linder reviewed with ER physician and interventional radiology on
11/07/2024
PA catheter placed with thrombolysis 11/07/2024
Follow-up pulmonary arteriogram 11/08/2024-improved PA pressures-43/16-day before 51/20, improved parenchymal perfusion, especially in upper lobe, residual central embolism but no longer occlusive-thrombolysis discontinued
Eventual conversion to oral anticoagulation for minimum of 3-6 months
Hypercoagulable workup/hematology evaluation is recommended with family history and unprovoked nature of this large life-threatening clot
Bedrest �24 hours
Renal function improving
Nephrology evaluation noted and appreciated
Nicardipine drip will be weaned
Back on oral nifedipine
Follow hemoglobin
Insulin supplementation as needed
Baseline A1c significantly elevated
Diabetic education
Consult diabetic nurse practitioner-likely will need adjustment in outpatient diabetes medications
DVT prophylaxis-on full anticoagulation
Diabetic diet
Begin to mobilize in the next 12 hours
Outpatient pulmonary [id number] has shaping machine tender in [place]
Outpatient sleep apnea [id number] follows at the [facility] in [place] for sleep apnea
Outpatient appropriate malignancy screening including colonoscopy and prostate exam
updated on 11/07/2024 at the bedside and benefits and risks of thrombolytics versus conservative standard of care management with anticoagulation were reviewed with patient and extensively. Both understand there is increased risks with
thrombolytic therapy, however, more rapid resolution and critical nature of his current illness dictates more aggressive thrombolytic/thrombectomy maneuver
Dr. Linder updated on multidisciplinary rounds 11/08/2024
Recommend outpatient pulmonary/sleep disorders [id number], follow-up CT chest and possible lower extremity ultrasound, hematologic evaluation after appropriate therapy and sleep apnea workup
Critical care statement: A total of 45 minutes of critical care time was provided for this patient today. This includes management of unstable vital signs, evaluation for thrombolytic therapy, management of large pulmonary embolism, evaluation of
the patient at bedside, reviewing the patient's pertinent medical records including radiographs, microbiology, laboratory evaluations, and discussion with primary team, consultants, pharmacy, and critical care nursing.
Diagnostic data:
CT chest abdomen and pelvis 11/07/2024-no official reading, to my eye large clot burden right sided pulmonary emboli with near complete occlusion, minimal left-sided clot burden no severe right sided strain
Subjective Dataa
Subjective Data
Date of Service:
Date of Service: November 08, 2024
Chief Complaint: Wet Chemistry Analyst Follow Up, Pulmonary Follow Up and VTE Follow Up
Subjective:
Feels better, less short of breath, less oxygen requirements, no chest pain, pleurisy, abdominal pain, leg swelling or weakness
Review of Systems
General: Other (Per HPI)
Objective Data
Data Reviewed
Vital Signs / I&O / Oxygen:
Vital Signs
Temp Pulse Resp BP Pulse Ox
98.2 F 92 14 159/93 96
11/08/24 04:08 11/08/24 07:08 11/08/24 07:08 11/08/24 07:08 11/08/24 07:26
Intake and Output
11/07/24 11/08/24 11/09/24
06:59 06:59 06:59
Intake Total 2047.5 / 2152.5 105 / 105
Output Total 1000 / 1200 200 / 200
Balance 1047.5 / 952.5 -95 / -95
SaO2 96
Nasal Cannula flow liters per 7
minute
Physical Exam
General: Respiratory Distress (n) and Comfortable
HEENT: Normocephalic, Anicteric and Moist Mucous Membranes
Cardiovascular: Regular Rhythm, Murmur (n) and Other (No increased P2 or RVE)
Respiratory: Wheeze (n), Crackles (n), Rhonchi (n), Non-Labored Respirations, Accessory Resp Muscle Use (n) and Stridor (n)
GI: Soft, Non Distended and Non Tender
Neurology: Awake, Alert and No Motor Deficits
Skin: Warm, Good Color, Cyanosis (n), Jaundice (n) and Rash (n)
Labs/Micro/Reports
Lab Data
11/08/24 04:56
Laboratory Results
11/07/24 11/07/24 11/07/24
12:11 12:12 12:15
PT 13.5
INR 0.98
APTT 26.8 Cancelled Cancelled
11/07/24 11/08/24 11/08/24
18:09 00:11 04:56
PT 13.9 13.6 14.6
INR 1.02 0.99 1.08
APTT 40.4 H 28.1 30.1
--- NOTE | 2024-11-08 07:54 | W.PN.NEPH.PH ---
Today's Communication / Plan
-
Add back oral Procardia
Assessment/Plan
-
Impression:
Submassive unprovoked pulmonary emboli with severe hypoxemia, tachycardia and syncopal episode (right main pulmonary artery)
Acute kidney injury (3.5)
Hypertension emergency
Dyslipidemia
Obstructive sleep
Plan:
ADRIANA:
- creatinine on presentation was 3.[address] angiogram
-Fortunately creatinine has dropped to 1.3 and patient is nonoliguric at 1200 cc urine output
-Blood pressure control with Cardene drip
-Add back oral nifedipine
- obtained urinalysis urine protein to creatinine ratio kidney and bladder ultrasound to workup for CKD (UA 1 plus blood and 1 plus albumin), blood protein to creatinine ratio only 100 mg
-obtained autoimmune serology serologies which are pending
-presented with acute renal failure and acute pulmonary embolism status post thrombolytic directed therapy via IR
-I will utilize Cardene drip for blood pressure control to keep systolic blood pressure between 130-160 with diastolic pressures between 80-95
- 35 minutes critical care time spent with patient care
- Patient critically ill with uncontrolled hypertension and acute pulmonary artery embolism requiring directed lytic therapy
-
-
Date of Service: November 08, 2024
CC / HPI / ROS
-
Chief Complaint:
adriana
Uncontrolled hypertension
History of Present Illness:
Blood pressure treated with Cardene drip
Creatinine down to 1.3
Review of Systems:
Nonoliguric no chest pain less short of breath
Labs
-
Labs:
Sodium 138 mmol/L (135-145) 11/08/24 04:56
Potassium 4.4 mmol/L (3.5-5.1) 11/08/24 04:56
Chloride 106 mmol/L (98-107) 11/08/24 04:56
Carbon Dioxide 27 mmol/L (22-30) 11/08/24 04:56
BUN 15 mg/dl (9-20) 11/08/24 04:56
Creatinine 1.3 mg/dL (0.7-1.3) 11/08/24 04:56
eGFR > 60.00 11/08/24 04:56
Glucose 177 mg/dl (70-99) H 11/08/24 04:56
Calcium 8.9 mg/dl (8.4-10.2) 11/08/24 04:56
Glq-O-Iakgjswymuz Pept < 20.0 pg/ml 11/07/24 11:37
Albumin 4.1 g/dl (3.5-5.0) 11/07/24 11:37
Physical Exam
-
Vital Signs:
Vital Signs
Temp Pulse Resp BP Pulse Ox
98.2 F 92 14 159/93 96
11/08/24 04:08 11/08/24 07:08 11/08/24 07:08 11/08/24 07:08 11/08/24 07:26
Cardiovascular:: Regular rate and rhythm
Respiratory:: Bilateral: CTA
Lung Excursion:: Normal
Abdomen:: Nontender, Soft and Tender
Bowel Sounds:: Decreased
Extremity Edema:: +1: Bilateral: (Trace)
[place] Catheter: No
[2024-11-08] MEDS: LIPITOR 40 MG PO (08:22)
[2024-11-08] MEDS: PROCARDIA XL (EXTENDED RELEASE) 60 MG PO (08:22)
--- NOTE | 2024-11-08 08:28 | W.PN.INTV ---
Documented by User: Jacque Rocha MD, Resident 11/08/24 10:34
Today's Communication / Plan
Recommendations
plan reviewed with attending
Assessment
-
44-year-old obese non-smoking male PMH asthma, JACKY presented with sudden onset shortness of breath, witnessed syncopal episode noted to have significant shortness of breath, tachypnea, tachycardia, hypertension and significant hypoxemia requiring
high flow oxygen subsequently noted to have large clot burden pulmonary emboli-photographer's assistant consulted for pulmonary embolism/critical care management 11/07/2024.
Creatinine reduced to 1.3. Sugars managed on insulin. HA1c 8.8. LE US demonstrated no DVT bilaterally.
Submassive unprovoked pulmonary emboli with severe hypoxemia, tachycardia and syncopal episode
PESI-116 class IV-high risk, had mild mental status changes which would place his score 176-class V-high risk
Hyperglycemia
ADRIANA
Conditions present prior to admission:
Obesity
Hypertension
Plan
Neuro:
Concerns for AMS in ED. Alert and oriented today asking appropriate questions. Monitor mental status post TPA.
CT head negative for acute hemorrhage.
Pulm:
Supplemental oxygen as needed-currently on NC.
Aspiration precautions
Incentive spirometry
CT chest personally reviewed-significant right sided clot burden with near complete occlusion right mainstem pulmonary artery. IR thrombectomy and tpa catheter currently inserted.
Heparin drip initiated
Patient has resolved tachycardia and hypoxemia
Continue home asthma medications
Cardio:
EKG: sinus tachycardia with short [place] [address] ST abnormality, possible inferior subendocardial injury
Echocardiogram demonstrated stage 1 diastolic dysfunction. Mild tricuspid regurgitation. Possible sequelae of PE.
Troponin <0.012. BNP <20
/renal:
Cr 1.3. Improving Cr. Unknown baseline, takes creatine at home. ADRIANA resolved
Monitor I+O
Nephrology Consult. Recommends transitioning BP medication back to home meds.
Renal US demonstrated no abnormalities.
Heme:
Bedrest �24 hours. Reassess after IR today
Follow hemoglobin
Lower extremity ultrasound negative
Patient will eventual require hypercoagulable workup outpt as unprovoked
Endocrine:
No hx DM. A1c 8.8.
Insulin supplementation as needed. Sliding scale started. 10 units lantus at night.
DVT prophylaxis-on full anticoagulation
Early nutrition- NPO for procedure
Early mobilization
Outpatient pulmonary follow-up. Follows at [facility].
Diagnostic data:
CT chest abdomen and pelvis 11/07/2024-no official reading, to my eye large clot burden right sided pulmonary emboli with near complete occlusion, minimal left-sided clot burden no severe right sided strain
Subjective Dataa
Subjective Data
Date of Service:
Date of Service: November 08, 2024
Subjective:
Today, pt denies SOB, chest pain. He reports lower back pain from lying flat otherwise denies any new symptoms.
Pt reports only PMH HTN, asthma, HLD, JACKY. He remembers having heart studies done with no diagnosis.
Pt reports taking creatine at home at high doses.
Objective Data
Data Reviewed
Vital Signs / I&O / Oxygen:
Vital Signs
Temp Pulse Resp BP Pulse Ox
98.4 F 88 13 148/88 95
11/08/24 07:45 11/08/24 08:22 11/08/24 08:08 11/08/24 08:22 11/08/24 08:15
Intake and Output
11/07/24 11/08/24 11/09/24
06:59 06:59 06:59
Intake Total 2047.5 / 2152.5 210 / 210
Output Total 1000 / 1200 200 / 200
Balance 1047.5 / 952.5
SaO2 95
Nasal Cannula flow liters per 7
minute
Physical Exam
General: Comfortable
HEENT: Normocephalic and Anicteric
Cardiovascular: S1-S2 and Regular Rhythm
Respiratory: Clear and Non-Labored Respirations
Neurology: AO x 3 and No Motor Deficits
Skin: Warm, Dry and Other (tpa catheter in groin)
Labs/Micro/Reports
Lab Data
11/08/24 04:56
Laboratory Results
11/07/24 11/07/24 11/07/24
12:11 12:12 12:15
PT 13.5
INR 0.98
APTT 26.8 Cancelled Cancelled
11/07/24 11/08/24 11/08/24
18:09 00:11 04:56
PT 13.9 13.6 14.6
INR 1.02 0.99 1.08
APTT 40.4 H 28.1 30.1

Documented by User: Milton Linder MD 11/08/24 11:15
Today's Communication / Plan
Recommendations
plan reviewed with attending
I reviewed this patient's case independently and in conjunction with the resident. I personally performed the davis components of the evaluation and management of this critically ill patient, including the history, physical exam, and medical
decision-making. I was present during the davis portions of care, reviewed the resident's documentation, and participated in the ongoing management of this patient requiring critical care. I confirm the medical necessity of these services. I
agree with documented assessment and plan
Milton Linder MD, [facility], [facility]
Assessment
-
44-year-old obese non-smoking male PMH asthma, JACKY presented with sudden onset shortness of breath, witnessed syncopal episode noted to have significant shortness of breath, tachypnea, tachycardia, hypertension and significant hypoxemia requiring
high flow oxygen subsequently noted to have large clot burden pulmonary emboli-photographer's assistant consulted for pulmonary embolism/critical care management 11/07/2024.
Creatinine reduced to 1.3. Sugars managed on insulin. HA1c 8.8. LE US demonstrated no DVT bilaterally.
Submassive unprovoked pulmonary emboli with severe hypoxemia, tachycardia and syncopal episode
PESI-116 class IV-high risk, had mild mental status changes which would place his score 176-class V-high risk
Hyperglycemia
ADRIANA
Conditions present prior to admission:
Obesity
Hypertension
Plan
Neuro:
Concerns for AMS in ED. Alert and oriented today asking appropriate questions. Monitor mental status post TPA.
CT head negative for acute hemorrhage.
Pulm:
Supplemental oxygen as needed-currently on NC.
Aspiration precautions
Incentive spirometry
CT chest personally reviewed-significant right sided clot burden with near complete occlusion right mainstem pulmonary artery. IR thrombectomy and tpa catheter currently inserted-thrombolysis provided, no thrombectomy
Repeat pulmonary arteriogram to assess PA pressures and clot burden and potential need for further thrombolysis
Heparin drip initiated
Patient has resolved tachycardia and hypoxemia
Continue home asthma medications
Cardio:
EKG: sinus tachycardia with short [place] [address] ST abnormality, possible inferior subendocardial injury
Echocardiogram demonstrated stage 1 diastolic dysfunction. Mild tricuspid regurgitation. Possible sequelae of PE.
Troponin <0.012. BNP <20
/renal:
Cr 1.3. Improving Cr. Unknown baseline, takes creatine at home. ADRIANA resolved
Monitor I+O
Nephrology Consult. Recommends transitioning BP medication back to home meds.
Renal US demonstrated no abnormalities.
Heme:
Bedrest �24 hours. Reassess after IR today
Follow hemoglobin
Lower extremity ultrasound negative
Patient will eventual require hypercoagulable workup outpt as unprovoked
Endocrine:
No hx DM. A1c 8.8.
Insulin supplementation as needed. Sliding scale started. 10 units lantus at night.
DVT prophylaxis-on full anticoagulation
Early nutrition- NPO for procedure
Early mobilization
Outpatient pulmonary follow-up. Follows at [facility].
Diagnostic data:
CT chest abdomen and pelvis 11/07/2024-no official reading, to my eye large clot burden right sided pulmonary emboli with near complete occlusion, minimal left-sided clot burden no severe right sided strain
[2024-11-08 08:57] LABS: Glycohemoglobin (HgbA1c) 8.8 % (4.0-5.6)
[2024-11-08] MEDS: NON-FORMULARY ITEM 1 UNIT INH ×2 (09:06→20:20)
--- NOTE | 2024-11-08 09:31 | PTCARENOTE ---
Rec'd care of patient at 0700. Patient alert and oriented. Heparin gtt infusing as ordered through right hand INT. Thrombolysis infusing through right femoral vein. Patient aware of orders to lay flat and keep limb straight. RLE neurovascular check
wnl. NSR on tele. Remains off Cardene gtt. Nifedipine restarted by grocery store associate. Oxygen weaned to 8L MF. Denies dyspnea. Voiding via urinal. Peripheral vascular and renal US completed. See worklist for full assessment and care.
--- NOTE | 2024-11-08 09:33 | W.PN.HOSP.TC ---
Today's Communication/Plan
-
IV heparin
ISS
Echo
Assessment / Plan
Assessment / Plan
Physical Exam
General: Comfortable, Conversant and Respiratory Distress
HEENT: NormoCephalic, Moist mucous membranes and Atraumatic
Respiratory: Clear; No Wheezes, Rales or Rhonchi
Cardiac: S1/S2, Regular Rhythm and Tachycardia; No Murmur or Rub
GI: Soft, Non Tender, Non Distended and Normal Bowel Sounds; No Organomegaly
Rectal: Deferred by Provider
Musculoskeletal: No Clubbing, No Cyanosis and No Edema
Skin: No Rash
Neuro: Nonfocal/grossly intact
Psych: Intact Judgment/Insight
A/P:
# Syncopal episode/ acute hypoxic respiratory failure due to submassive unprovoked pulmonary emboli with severe hypoxemia, tachycardia and syncopal episode (right main pulmonary artery)
Toxic encephalopathy, likely due to hypoxia hypoxic encephalopathy/
Still with significant hypoxemia requiring high flow oxygen
S/p Thrombolysis infusion via infusion catheter in right PA by IR on 11/07.
Continue care in ICU setting
c/w O2 support
Head CT scan did not show acute findings
Negative troponin
Peripheral lower extremity ultrasound, no DVT
IV heparin for at least 48-72 hours then changing to oral AC
Monitor PTT
# Emergency HTN
Known HTN
Started on Nicardipine gtt
wean off gtt to oral BP medications
# Obesity BMI 46
# ADRIANA
Creatinine is coming down
Monitor renal function
Renal US no hydronephrosis
#newly diagnosed Diabetes
known pre-diabetic, not sure if he followed
HGB A1C 8.8
Total time spent to see the patient, examine the patient, review data lab result, discuss treatment plan with patient, nursing staff around 55 minutes
Anticipated Discharge: > 48 hours
Subjective/Interval History
-
Date of Service: November 08, 2024
No chest pain
No abdominal pain
Objective Data
-
Labs:
Laboratory Results
11/08/24 11/08/24 11/08/24
00:11 04:56 12:00
WBC 8.1 7.6 Pending
Hgb 12.8 L 12.8 L Pending
Hct 38.5 L 38.3 L Pending
Plt Count 198 181 Pending
PT 13.6 14.6 Pending
INR 0.99 1.08 Pending
APTT 28.1 30.1 Pending
Sodium 138
Potassium 4.4
Chloride 106
Carbon Dioxide 27
BUN 15
Creatinine 1.3
Glucose 177 H
Calcium 8.9
11/08/24
18:00
WBC Pending
Hgb Pending
Hct Pending
Plt Count Pending
PT Pending
INR Pending
APTT Pending
Sodium
Potassium
Chloride
Carbon Dioxide
BUN
Creatinine
Glucose
Calcium
Vital Signs:
Vital Signs
Temp Pulse Resp BP Pulse Ox
98.4 F 90 14 132/91 95
11/08/24 07:45 11/08/24 09:08 11/08/24 09:08 11/08/24 09:08 11/08/24 09:06
I&O
11/07/24 11/08/24 11/09/24
06:59 06:59 06:59
Intake Total 2047.5 / 2152.5 315 / 315
Output Total 1000 / 1200 200 / 200
Balance 1047.5 / 952.5 115 / 115
--- NOTE | 2024-11-08 10:33 | PTCARENOTE ---
Patient transported to [facility]. TPA and Heparin infusing. VSS.
--- NOTE | 2024-11-08 10:53 | W.PN.UPDATE ---
Update Note
Progress Note Update
Followup pulmonary arteriogram performed. Right main PA pressure improved, now measuring 43/16, mean 27 mm Hg (yesterday 51/20, mean 32).
PA arteriogram demonstrates improved parenchymal perfusion, especially in the upper lobe. Residual central embolism but no longer occlusive.
Patient reports his breathing is improved, will dc thrombolysis.
OK to resume therapeutic anticoagulation 2 hours after sheath removal, around 1 pm.
--- NOTE | 2024-11-08 12:16 | PTCARENOTE ---
Patient transported back to icu around 1125. Resting comfortably in bed. No complaints. VSS. Orders to lay flat and keep limb straight for 2 additional hours s/p sheath removal. Patient verbalizes understanding. Right groin site dressing c/d/i.
Heparin gtt off until 1300. No other changes.
[2024-11-08 12:30] LABS: Glucose - Point of Care 151 mg/dl (70-99)
--- NOTE | 2024-11-08 12:42 | CM ---
Patient is out of room. Initial assessment completed with . Patient lives with his and 17 y/o son in a 2 story plus basement home with B/B on 2nd and 1/2 bath on 1st, 3 steps to enter. 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 He has a CPAP and uses it but not consistently. No in-home services. No HC-POA. No psychiatric hospitalizations. Was in the [employer] during the [place] [employer]. did not know if he has VA benefits. Expect
that he does since he was in the war. PCP name unknown but is with [facility]. Pharmacy is [facility] in [place], [place]. Discharge POC: TBD based on medical progression. Possibly ANDRE RN.
--- NOTE | 2024-11-08 13:08 | PTCARENOTE ---
Right groin site remains intact. Neurovascular check wnl. Per Dr. Patel, orders to lay flat completed. Patient assisted with repositioning in bed. Mass Communications Professor contact for orders to restart Heparin drip.
[2024-11-08 13:28] LABS: Hematocrit 41.3 % (39.0-52.0); Hemoglobin 13.5 g/dL (13.0-18.0); Mean Corp Hgb Conc. 32.7 g/dL (33.0-37.0); Mean Corpuscular Volume 80.5 fL (80.0-94.0); Platelet Count 175 10^3/uL (130-400); Red Cell Dist. Width 14.5 % (11.5-14.5)
[2024-11-08 13:40] LABS: INR 1.03; PT 14.0 Sec (11.4-14.6)
[2024-11-08 13:41] LABS: APTT 31.5 Sec (23.4-35.0); Fibrinogen 360 MG/DL (199-459)
--- NOTE | 2024-11-08 13:48 | PTCARENOTE ---
Heparin gtt restarted per MD order. PTT ordered for 1944.
--- NOTE | 2024-11-08 16:28 | PTCARENOTE ---
O2 weaned to 2L. Pulse ox 93-94%. Diet advanced to 2200 calorie diet. No other changes. No complaints. VSS.
[2024-11-08 16:35] LABS: Glucose - Point of Care 137 mg/dl (70-99)
[2024-11-08] MEDS: HEPARIN 25000 UNITS/250 ML IV (17:04)
--- NOTE | 2024-11-08 17:05 | PTCARENOTE ---
Patient weaned to R!. Pulse ox 92-93%. Denies dyspnea.
--- NOTE | 2024-11-08 20:10 | PTCARENOTE ---
Received pt from previous RN. Pt is AAOx3, neurovascular checks Q4 (see worklist). NSR/sinus tach on the monitor. Pt on RA O2 sat 92%, lungs diminished. Pt uses the urinal in bed. Right groin dressing c/d/i. Received heparin at 2000 units/hr. Mouth
care provided. Call galo in reach. Safe environment maintained.
[2024-11-08] MEDS: LUVOX 200 MG PO (20:32)
[2024-11-08 21:34] LABS: APTT 45.0 Sec (23.4-35.0)
[2024-11-08] MEDS: LANTUS 0.1 UNITS SC (21:46)
[2024-11-08 21:57] LABS: Glucose - Point of Care 126 mg/dl (70-99)
[2024-11-08] MEDS: TYLENOL 650 MG PO (22:45)
[2024-11-08] MEDS: ZOFRAN 4 MG IV (22:50)
--- NOTE | 2024-11-08 23:58 | PTCARENOTE ---
Systems reviewed, no new changes in assessment. Pt wears CPAP at home, placed on our CPAP. Call galo in reach. Safe environment maintained.
[2024-11-09] VITALS (15 sets, daily range): BP systolic 127–162; BP diastolic 71–98; BMI 46.2
--- NOTE | 2024-11-09 03:15 | PTCARENOTE ---
Systems reviewed, no new changes in assessment. AM labs provided. Safe environment maintained.
[2024-11-09 03:16] LABS: Hematocrit 40.5 % (39.0-52.0); Hemoglobin 13.6 g/dL (13.0-18.0); Mean Corp Hgb Conc. 33.6 g/dL (33.0-37.0); Mean Corpuscular Volume 81.7 fL (80.0-94.0); Platelet Count 196 10^3/uL (130-400); Red Cell Dist. Width 14.3 % (11.5-14.5)
[2024-11-09 03:37] LABS: APTT 78.3 Sec (23.4-35.0)
[2024-11-09 04:08] LABS: Blood Urea Nitrogen 15 mg/dl (9-20); Calcium 9.1 mg/dl (8.4-10.2); Carbon Dioxide 26 mmol/L (22-30); Chloride 106 mmol/L (98-107); Estimated Creatinine Clearance 109 ml/min; Glucose 148 mg/dl (70-99); Magnesium 1.9 mg/dl (1.6-2.3); Potassium 4.3 mmol/L (3.5-5.1); Sodium 136 mmol/L (135-145); eGFR > 60.00
[2024-11-09] MEDS: HEPARIN 25000 UNITS/250 ML IV ×2 (04:35→16:00)
[2024-11-09] MEDS: NON-FORMULARY ITEM 1 UNIT INH (07:20)
--- NOTE | 2024-11-09 07:35 | W.PN.INTV ---
Today's Communication / Plan
Recommendations
Status post thrombolysis
Heparin drip-convert to oral anticoagulant in the next 24 hours
Increase activity
Assess discharge supplemental oxygen needs
Monitor renal function-much improved
Monitor blood pressure-also much improved
Stable for transfer out of ICU-elementary school tutor will sign off-call pulmonary if respiratory issues arise
Assessment
-
44-year-old obese non-smoking male presented with sudden onset shortness of breath, witnessed syncopal episode noted to have significant shortness of breath, tachypnea, tachycardia, hypertension and significant hypoxemia requiring high flow oxygen
subsequently noted to have large clot burden pulmonary emboli-elementary school tutor consulted for pulmonary embolism/critical care management 11/07/2024.
Submassive unprovoked pulmonary emboli with severe hypoxemia, tachycardia and syncopal episode
PESI-116 class IV-high risk, had mild mental status changes which would place his score 176-class V-high risk
Hyperglycemia-A1c 8.8%
ADRIANA
Hypertensive emergency
Conditions present prior to admission:
Obesity
Hypertension
Asthma-mild intermittent
JACKY on CPAP
Family history [id number] PE
Plan
Oxygenation and hemodynamics have improved significantly
Supplemental oxygen as needed--was initially on high flow-now weaned to room air-95% saturation
Assess discharge exertional supplemental oxygen needs
Aspiration precautions per protocol
Incentive spirometry encouraged
Home Breztri as well as albuterol as needed
Bring home CPAP--Will bleed oxygen through CPAP as needed
CT chest personally reviewed-significant right sided clot burden with near complete occlusion right mainstem pulmonary artery
Echocardiogram 11/07/2024-EF 60-65%, stage I diastolic dysfunction, mildly dilated right ventricular cavity size, PA systolic 44
Lower extremity ultrasound 11/08/24-no evidence for DVT bilaterally
Patient will eventual require hypercoagulable workup as unprovoked
Full PESI summarized above
Heparin drip continues-eventually changed to oral anticoagulant for minimum of 3-6 months
Benefits and risks of thrombolytics therapy were reviewed with patient and
Patient has significant tachycardia, significant hypoxemia and had syncopal episode currently-benefits of thrombolytic therapy and possible thrombectomy outweigh the risks-Dr. Linder reviewed with ER physician and interventional radiology on
11/07/2024
PA catheter placed with thrombolysis 11/07/2024
Follow-up pulmonary arteriogram 11/08/2024-improved PA pressures-43/16-day before 51/20, improved parenchymal perfusion, especially in upper lobe, residual central embolism but no longer occlusive-thrombolysis discontinued
Eventual conversion to oral anticoagulation for minimum of 3-6 months
Hypercoagulable workup/hematology evaluation is recommended with family history and unprovoked nature of this large life-threatening clot
Increase activity/out of bed
Renal function improving and likely back to baseline
Nephrology evaluation noted and appreciated
Nicardipine drip will be weaned
Back on oral nifedipine
Follow hemoglobin
Insulin supplementation as needed
Baseline A1c significantly elevated
Diabetic education
Consult diabetic nurse practitioner-likely will need adjustment in outpatient diabetes medications
DVT prophylaxis-on full anticoagulation
Diabetic diet
Begin to mobilize in the next 12 hours
Outpatient pulmonary [id number] has landing scaler in [place]
Outpatient sleep apnea [id number] [facility] [place] [facility]
Outpatient appropriate malignancy screening including colonoscopy and prostate exam
Patient stable for transfer out of ICU-elementary school tutor will sign off-call pulmonary if respiratory issues arise
updated on 11/07/2024 at the bedside and benefits and risks of thrombolytics versus conservative standard of care management with anticoagulation were reviewed with patient and extensively. Both understand there is increased risks with
thrombolytic therapy, however, more rapid resolution and critical nature of his current illness dictates more aggressive thrombolytic/thrombectomy maneuver
Dr. Linder updated on multidisciplinary rounds 11/08/2024
Recommend outpatient pulmonary/sleep disorders [id number], follow-up CT chest and possible lower extremity ultrasound, hematologic evaluation after appropriate therapy and sleep apnea [id number] his care in [place] landing scaler and [facility]
Reviewed the patient's pertinent medical records including radiographs, microbiology, laboratory evaluations, and discussion with primary team, consultants, pharmacy, and critical care nursing.
Diagnostic data:
CT chest abdomen and pelvis 11/07/2024-no official reading, to my eye large clot burden right sided pulmonary emboli with near complete occlusion, minimal left-sided clot burden no severe right sided strain
Subjective Dataa
Subjective Data
Date of Service:
Date of Service: November 09, 2024
Chief Complaint: Manager Drilling Follow Up, Pulmonary Follow Up and VTE Follow Up
Subjective:
Feels better, no complaints of shortness of breath, chest pain, pleurisy, abdominal pain
Review of Systems
General: Other (Per HPI)
Objective Data
Data Reviewed
Vital Signs / I&O / Oxygen:
Vital Signs
Temp Pulse Resp BP Pulse Ox
97.7 F 94 12 127/85 98
11/09/24 07:32 11/09/24 06:00 11/09/24 06:00 11/09/24 06:00 11/09/24 06:00
Intake and Output
11/08/24 11/09/24 11/10/24
06:59 06:59 06:59
Intake Total 2047.5 / 2152.5 2135 / 2135
Output Total 1000 / 1200 1725 / 1725
Balance 1047.5 / 952.5 410 / 410
SaO2 98
Nasal Cannula flow liters per 7
minute
Physical Exam
General: Respiratory Distress (n) and Comfortable
HEENT: Normocephalic, Anicteric and Moist Mucous Membranes
Cardiovascular: Regular Rhythm, Murmur (n) and Other (No increased P2 or RVE)
Respiratory: Wheeze (n), Crackles (n), Rhonchi (n), Non-Labored Respirations, Accessory Resp Muscle Use (n) and Stridor (n)
GI: Soft, Non Distended and Non Tender
Neurology: Awake, Alert and No Motor Deficits
Skin: Warm, Good Color, Cyanosis (n), Jaundice (n) and Rash (n)
Labs/Micro/Reports
Lab Data
11/09/24 03:06
11/09/24 03:06
Laboratory Results
11/08/24 11/08/24 11/08/24
13:17 18:00 19:29
PT 14.0 Cancelled
INR 1.03 Cancelled
APTT 31.5 Cancelled 45.0 H
11/09/24
03:06
PT
INR
APTT 78.3 H
--- NOTE | 2024-11-09 07:42 | PN.DE.MGMTRT ---
Insulin Management
- -
11/09/2024: Diabetes Management Consult
44 year old male who presented to the ED with sudden onset SOB, tachypnea, tachycardia, hypertension and witnessed syncopal episode while at work.
PMH: JACKY on CPAP, Asthma, HTN, HDL, Obesity and New onset T2DM. He was noted to have significant hypoxemia requiring high flow oxygen due to Submassive unprovoked pulmonary emboli in R lung that was treated with thrombolysis.
Glucose on admission was elevated at 388 venous. A1C was 8.8%, Cr 3.5, eGFR 20.91-->1.3, eFGR >60 today.
Pt awake, alert, oriented, sitting up @ edge of bed, offers no complaints, able to discuss diabetes care plan.
Pt reports that he had previous diagnosis of pre-diabetes. Admits to a sedentary lifestyle of prolonged sitting while at work and driving 2 hrs to and from work.
Pt received Lantus 10 units @ HS, 3AM glucose was 148 V, fasting glucose 127 POC this AM. Will cont Lantus 10 units @ HS.
Will start glipizide 5mg BID, 1st dose now. Will defer Metformin to PCP after repeat f/u blood work to assess kidney function given ADRIANA with a Cr of 3.5 on admission
Patient was counseled about new diagnosis of T2DM and medication options were discussed for shared decision making for at home treatment after discharge. Education was provided for insulin injection administration and use of glucose monitor.
Patient was instructed to test glucose and record in provided log in the morning, before dinner and at bedtime. Oral medication of glipizide was discussed along with continued use of insulin injections.
Patient was counseled that Metformin was not an appropriate option at this time due to the ADRIANA on admission.
Discussed with Hospitalist and Nurse. Will cont to follow. Rx for lancets, strips and insulin pens have been submitted to pt's pharmacy.
Diabetes History
- -
Type of Diabetes: 2 requiring insulin
Pre-Admission Diabetes Regimen
11/09/24
03:06
Creatinine 1.3
Lab Results
Hemoglobin A1c 8.8 % (4.0-5.6) H 11/07/24 18:09
Insulin Pump Settings
IP Diabetes Regimen
11/08/24 11/08/24 11/08/24
12:18 16:23 21:45
Glucose
POC Glucose 151 H 137 H 126 H
11/09/24
03:06
Glucose 148 H
POC Glucose
Meal type: Dinner
Meal type: Lunch
Amount consumed: 100%
Amount consumed: 100%
Patient Education
[2024-11-09] MEDS: LIPITOR 40 MG PO (08:20)
[2024-11-09] MEDS: PROCARDIA XL (EXTENDED RELEASE) 60 MG PO (08:20)
--- NOTE | 2024-11-09 08:26 | PTCARENOTE ---
Rec'd care of patient at 0700. Patient alert and oriented. MAEx4. NSR on tele. Pulse ox 93-94% on RA. Lung sounds cta. Denies dyspnea. Heparin gtt infusing through right hand INT. Next PTT due at 0930. Patient downgraded to tele level. VSS.
Ambulatory in room with supervision; asymptomatic.
[2024-11-09 09:23] LABS: Glucose - Point of Care 127 mg/dl (70-99)
--- NOTE | 2024-11-09 09:26 | W.PN.HOSP.TC ---
Today's Communication/Plan
-
likely dc in am
Consulted DM MANAGER MEDICAL DEVICE
Assessment / Plan
Assessment / Plan
Physical Exam
General: Comfortable, Conversant and Respiratory Distress
HEENT: NormoCephalic, Moist mucous membranes and Atraumatic
Respiratory: Clear; No Wheezes, Rales or Rhonchi
Cardiac: S1/S2, Regular Rhythm and Tachycardia; No Murmur or Rub
GI: Soft, Non Tender, Non Distended and Normal Bowel Sounds; No Organomegaly
Rectal: Deferred by Provider
Musculoskeletal: No Clubbing, No Cyanosis and No Edema
Skin: No Rash
Neuro: Nonfocal/grossly intact
Psych: Intact Judgment/Insight
A/P:
# Syncopal episode/ acute hypoxic respiratory failure due to submassive unprovoked pulmonary emboli with severe hypoxemia, tachycardia and syncopal episode (right main pulmonary artery)
Toxic encephalopathy, likely due to hypoxia hypoxic encephalopathy/
Improved over all. Off oxygen now
S/p Thrombolysis infusion via infusion catheter in right PA by IR on 11/07.
Can move to telemetry
Head CT scan did not show acute findings
Negative troponin
Peripheral lower extremity ultrasound, no DVT
IV heparin for at least 48-72 hours then changing to oral AC
Monitor PTT
# Emergency HTN
Known HTN
Started on Nicardipine gtt
weaned off gtt to oral BP medications
# Obesity BMI 46
# ADRIANA, resolving.
Creatinine is coming down
Monitor renal function
Renal US no hydronephrosis
#newly diagnosed Diabetes
known pre-diabetic, not sure if he followed
Consulted DM MANAGER MEDICAL DEVICE
HGB A1C 8.8
Total time spent to see the patient, examine the patient, review data lab result, discuss treatment plan with patient, nursing staff around 55 minutes
Anticipated Discharge: Within 24 hours
Subjective/Interval History
-
Date of Service: November 09, 2024
No chest pain
No fever
No sob
Objective Data
-
Labs:
Laboratory Results
11/08/24 11/09/24 11/09/24
19:29 03:06 09:17
WBC 8.8
Hgb 13.6
Hct 40.5
Plt Count 196
APTT 45.0 H 78.3 H Pending
Sodium 136
Potassium 4.3
Chloride 106
Carbon Dioxide 26
BUN 15
Creatinine 1.3
Glucose 148 H
Calcium 9.1
Vital Signs:
Vital Signs
Temp Pulse Resp BP Pulse Ox
97.7 F 92 15 135/78 94
11/09/24 07:32 11/09/24 09:00 11/09/24 09:00 11/09/24 09:00 11/09/24 08:19
I&O
11/08/24 11/09/24 11/10/24
06:59 06:59 06:59
Intake Total 2047.5 / 2152.5 2135 / 2160 75 / 75
Output Total 1000 / 1200 1725 / 1725 400 / 400
Balance 1047.5 / 952.5 410 / 435 -325 / -325
[2024-11-09 09:49] LABS: APTT 91.5 Sec (23.4-35.0)
--- NOTE | 2024-11-09 09:59 | TRANSFER ---
Patient transferred with belongings to via wheelchair. VSS. Heparin gtt infusing.
--- NOTE | 2024-11-09 10:00 | TRANSFER ---
pt arrived from ICU via wheelchair accompanied by staff. pt ambulated independently from WC to bed. hep gtt running through R hand IV site at 25 ml/hr. pt AAOx3, VSS other than HR elevated in 110s-120s. will continue to monitor.
[2024-11-09] MEDS: GLUCOTROL 5 MG PO ×2 (11:17→16:44)
[2024-11-09 11:55] LABS: Glucose - Point of Care 145 mg/dl (70-99)
--- NOTE | 2024-11-09 15:18 | W.PN.NEPH.PH ---
Today's Communication / Plan
-
follow labs
Assessment/Plan
-
Impression:
Submassive unprovoked pulmonary emboli with severe hypoxemia, tachycardia and syncopal episode (right main pulmonary artery)
Acute kidney injury (3.5)
Hypertension emergency
Dyslipidemia
Obstructive sleep
Plan:
ADRIANA:cr improved to 1.3 which could be baseline with large built
UA mild microhematuria on AC and U PCR 100mg/gm of cr -suggest f/u UA with PCP
serologies pending, complements high, await ANCA
BP increasing trend back on home procardia-titrate as needed, off cardene gtt
completed lytic therapy on heparin gtt plan to change to AC po tomorrow
will s/o, call with ?s
-
-
Date of Service: November 09, 2024
CC / HPI / ROS
-
Chief Complaint:
adriana
Uncontrolled hypertension
History of Present Illness:
Blood pressure increasing trend off cardene gtt, back on home procardia
Creatinine stable at 1.3
Review of Systems:
Nonoliguric no chest pain or short of breath
Labs
-
Labs:
WBC 8.8 10^3/uL (4.8-10.8) 11/09/24 03:06
RBC 4.96 10^6/uL (4.70-6.10) 11/09/24 03:06
Hgb 13.6 g/dL (13.0-18.0) 11/09/24 03:06
Hct 40.5 % (39.0-52.0) 11/09/24 03:06
Plt Count 196 10^3/uL (130-400) 11/09/24 03:06
Sodium 136 mmol/L (135-145) 11/09/24 03:06
Potassium 4.3 mmol/L (3.5-5.1) 11/09/24 03:06
Chloride 106 mmol/L (98-107) 11/09/24 03:06
Carbon Dioxide 26 mmol/L (22-30) 11/09/24 03:06
BUN 15 mg/dl (9-20) 11/09/24 03:06
Creatinine 1.3 mg/dL (0.7-1.3) 11/09/24 03:06
eGFR > 60.00 11/09/24 03:06
Glucose 148 mg/dl (70-99) H 11/09/24 03:06
Calcium 9.1 mg/dl (8.4-10.2) 11/09/24 03:06
Lxm-Y-Woiqbiwugof Pept < 20.0 pg/ml 11/07/24 11:37
Albumin 4.1 g/dl (3.5-5.0) 11/07/24 11:37
Physical Exam
-
Vital Signs:
Vital Signs
Temp Pulse Resp BP Pulse Ox
98.3 F 107 18 161/89 97
11/09/24 10:13 11/09/24 10:13 11/09/24 10:13 11/09/24 10:13 11/09/24 10:13
Cardiovascular:: Regular rate and rhythm
Respiratory:: Bilateral: CTA
Lung Excursion:: Normal
Abdomen:: Nontender, Soft and Tender
Bowel Sounds:: Decreased
Extremity Edema:: +1: Bilateral: (Trace)
Sotelo Catheter: No
--- NOTE | 2024-11-09 15:21 | CM ---
S/P thrombolysis. B/P and renal function improving. Anticipate discharge on 11/10/24 if remains stable. Discharge POC: Home with no needs.
--- NOTE | 2024-11-09 15:35 | PTCARENOTE ---
Addendum entered by Ladonna Tang RN 11/09/24 15:41:
Also educated Jermaine on mechanism of action and side effects of Lantus and Glipizide.
Original Note:
11/09/2024 DIABETES EDUCATION CONSULTATION
I met with patient to review diabetes management. He is inpatient with a PE 2/2 weightlifting. He has been prediabetic for some time.
I educated on physiology of T2D, organ damage, managing with medications, monitoring BG, nutrition, activity, sleep and managing stress. I reinforced signs of hyperglycemia, hypoglycemia and hypoglycemia protocol; BS parameters and recommended HbA1c
goals, glucometer and CGM instructions, glucose tracker, medic alert bracelet and outpatient DSME program. Written material provided.
I provided patient with a [email or web address] glucometer sample kit. Provided verbal instructions on proper blood sugar testing technique, and demonstration with patient�s participation. I educated and demonstrated on insulin injection technique,
timing, and storage. Discussed long acting insulin; onset/peak/duration, and encouraged him to administer his own injections with RN supervision while admitted. Discussed normal target glucose ranges and a monitoring schedule of fasting AM, before
dinner and at bedtime. Educated on Glipizide BID, take 30 minutes prior to meals and do not take if not eating unless otherwise directed. He received his dose of Glipizide during the appointment at 11am, but did not have lunch ordered. Discussed
with treating nurse and educated for him to take this 30 minutes prior to eating lunch. He verbalized understanding.
He also intermittent fasts for 18 hours, I recommended he discuss this with his provider especially since he is now on Lantus and Glipizide as this may not be commended. He also [address] work every day and is sedentary at work.
Although he weight trains, provided education to also incorporate walking after meals.
Encouraged patient to follow up with his PCP for post d/c appointment and to monitor medication and blood glucose levels. Provided list of endocrinologists if desired, to contact insurance company to verify in network status. Requested a
prescription for blood sugar testing supplies to be sent to his pharmacy on record. Patient verbalized understanding.
[2024-11-09] MEDS: ZESTRIL 5 MG PO (16:02)
[2024-11-09] MEDS: TOPROL XL 25 MG PO (16:31)
[2024-11-09 16:39] LABS: Glucose - Point of Care 84 mg/dl (70-99)
--- NOTE | 2024-11-09 16:55 | CM ---
S/P thrombolysis. B/P and renal function improving. Anticipate discharge on 11/10/24 if remains stable. Discharge POC: Anticipate home with no needs.
[employer] starter pack is $105.00. Coupon provided to patient.
[2024-11-09] MEDS: NON-FORMULARY ITEM 2 UNIT INH (19:13)
[2024-11-09] MEDS: LUVOX 200 MG PO (20:01)
[2024-11-09] MEDS: SINGULAIR 10 MG PO (20:02)
[2024-11-09 21:08] LABS: Glucose - Point of Care 104 mg/dl (70-99)
[2024-11-09] MEDS: LANTUS 0.1 UNITS SC (21:23)
[2024-11-10] MEDS: HEPARIN 25000 UNITS/250 ML IV (01:42)
[2024-11-10 03:52] VITALS: BP 133/74
[2024-11-10 07:20] VITALS: BP 122/67
[2024-11-10] MEDS: NON-FORMULARY ITEM 1 UNIT INH (07:35)
[2024-11-10 07:55] LABS: APTT 102.2 Sec (23.4-35.0)
[2024-11-10 08:11] LABS: Glucose - Point of Care 113 mg/dl (70-99)
--- NOTE | 2024-11-10 08:22 | W.PN.HOSP.TC ---
Today's Communication/Plan
-
discharge
Assessment / Plan
Assessment / Plan
Physical Exam
General: Comfortable, Conversant and Respiratory Distress
HEENT: NormoCephalic, Moist mucous membranes and Atraumatic
Respiratory: Clear; No Wheezes, Rales or Rhonchi
Cardiac: S1/S2, Regular Rhythm and Tachycardia; No Murmur or Rub
GI: Soft, Non Tender, Non Distended and Normal Bowel Sounds; No Organomegaly
Rectal: no bleeding
Musculoskeletal: No Clubbing, No Cyanosis and No Edema
Skin: No Rash
Neuro: Nonfocal/grossly intact
Psych: Intact Judgment/Insight
A/P:
# Syncopal episode/ acute hypoxic respiratory failure due to submassive unprovoked pulmonary emboli with severe hypoxemia, tachycardia and syncopal episode (right main pulmonary artery)
Toxic encephalopathy, likely due to hypoxia hypoxic encephalopathy/
Respiratory failure: Resolved.
S/p Thrombolysis infusion via infusion catheter in right PA by IR on 11/07.
No arrhythmias on telemetry
Head CT scan did not show acute findings
Negative troponin
Peripheral lower extremity ultrasound, no DVT
s/p IV heparin for at least 48-72 hours then changing to oral AC
Discussed option of oral anticoagulation, patient did not want warfarin. He chose Eliquis. He verbalized understanding to potential side effects of oral systemic anticoagulation.
Consulted case management for co-pay, patient was given coupon
# Emergency HTN
Known HTN
S/p nicardipine drip. Blood pressure is better controlled with new regimen including nifedipine, lisinopril and metoprolol
# Obesity BMI 46
Counseled, patient will follow-up with diabetic clinic advised endocrine clinic for GLP-1 treatment options
# ADRIANA, resolved
Creatinine is coming down
Monitored renal function
Renal US no hydronephrosis
Discussed with nephrology, okay to discharge
#newly diagnosed Diabetes
known pre-diabetic.
Consulted DM BICYCLE REPAIRMAN , recommended Lantus, glipizide, OP follow up in clinic. Patient expressed willingness to follow in the clinic
HGB A1C 8.8
# Patient requested to do blood work to rule out blood exposure. 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 His employer requested the panel. Patient made aware that we do not have outpatient clinic for that but he wanted to take
results through portal.
Total discharge time spent to see the patient, examine the patient, review data lab result, discuss discharge plan with patient, [employer] plastic surgery manager, nursing staff around 67 minutes
Anticipated Discharge: Today
Subjective/Interval History
-
Date of Service: November 10, 2024
No complaints
requesting discharge and infection panel blood work for blood exposure
Objective Data
-
Labs:
Laboratory Results
11/10/24
07:21
APTT 102.2 H
Vital Signs:
Vital Signs
Temp Pulse Resp BP Pulse Ox
98.1 F 82 14 133/74 95
11/10/24 03:52 11/10/24 03:52 11/10/24 03:52 11/10/24 03:52 11/10/24 03:52
I&O
11/09/24 11/10/24 11/11/24
06:59 06:59 06:59
Intake Total 2135 / 2160 1310 / 2030 720 / 720
Output Total 1725 / 1725 400 / 400
Balance 410 / 435 910 / 1630 720 / 720
[2024-11-10 08:37] LABS: Serine Protease-3, IgG 0 AU/mL (0-19)
[2024-11-10] MEDS: PROCARDIA XL (EXTENDED RELEASE) 60 MG PO (09:19)
[2024-11-10] MEDS: LIPITOR 40 MG PO (09:19)
[2024-11-10] MEDS: GLUCOTROL 5 MG PO (09:20)
[2024-11-10] MEDS: TOPROL XL 25 MG PO (09:20)
[2024-11-10] MEDS: ZESTRIL 10 MG PO (09:20)
--- NOTE | 2024-11-10 10:10 | CM ---
Met with patient at bedside; reported he will take a Lyft to his parked car in [place]
Plan: Discharge to home, no needs
[2024-11-10 11:00] VITALS: BP 170/88
[2024-11-10 12:35] LABS: Glucose - Point of Care 88 mg/dl (70-99)
[2024-11-10] MEDS: ELIQUIS 10 MG PO (12:45)
--- NOTE | 2024-11-10 12:56 | W.DCSUMMARY ---
Discharge Summary
Discharge Data
Date of Admission: 11/07/24
Date of Discharge: 11/10/24
-
Pending Results: No
Hospital Course
dapagliflozin 44 years old male presented to the hospital after a witnessed syncopal episode while he was at work. Upon waking up, patient complained of shortness of breath along with substernal chest tightness. In the emergency room, he had
negative troponin but was found to have significant hypoxemia. Scan of the chest showed large volume thrombus extending from the mid to distal right main pulmonary artery into the multiple right upper, middle and lower lobe pulmonary arterial
branches. Pulmonary and interventional doctors were consulted. Patient underwent thrombolysis infusion with the catheter positioned at the tip of the right main pulmonary artery. Patient was admitted to the unit. He was started on intravenous
heparin. Patient reported history of asthma and obstructive sleep apnea. He was noted to have acute kidney injury and high systolic blood pressure. Patient was given intravenous nicardipine drip. He was evaluated by first line supervisor and started on
oral blood pressure medications. His blood pressure stabilized and he was transferred out of intensive care unit. He was maintained on intravenous heparin for 72 hours. options for oral anticoagulation therapy were discussed with the patient, he
chose Eliquis. christmas tree farm manager was consulted for cost of Eliquis and was given coupon. Patient was noted to have hyperglycemia was diagnosed with diabetes, hemoglobin A1c was 8.8. He was evaluated by diabetic nurse practitioner. He was started on
Lantus and glipizide with good blood glucose control. Patient remained hemodynamically stable. Was able to ambulate without need for oxygen supplementation. Did not have chest pain. He tolerated new medications well including blood pressure
medications. He verbalized understanding to potential side effects and was given a prescription to repeat blood work in outpatient setting. Patient was discharged home in a stable condition.
Discharge Plan
-
Patient Disposition: Home (Routine Discharge)
Discharge Diagnosis/Procedures: # Syncopal episode/hypoxia :submassive unprovoked pulmonary emboli with severe hypoxemia, tachycardia and syncopal episode (right main pulmonary artery). S/P catheter placed with thrombolysis 11/07/2024. You were
started on intravenous heparin for more than 48 hours. Oral anticoagulation option, you chose Eliquis. Potential side effects of Eliquis include the bleeding. Avoid falls. Report to ER if you fall and hit your head even without symptoms
Acute kidney injury resolving,
#Hypertension emergency, you were started on new medications
1-metoprolol, beta-chloé, potential side effects include bradycardia, fatigue, hypotension
2-lisinopril, MARIANNE inhibitor, potential side effect include hyperkalemia, angioedema, renal injury, you will need to do blood work to monitor your counts and renal function.
We continued nifedipine
# Newly diagnosed diabetes, hemoglobin A1c 8.8. You are seen by diabetic nurse practitioner. You are started on Lantus and glipizide. Potential side effects of diabetes management include hypoglycemia. Please follow instruction on follow-up in
the clinic.
#Dyslipidemia: You requested refill of atorvastatin follow-up with pulmonary doctor
#Obstructive sleep:
Diet: Diabetic, Carb Controlled
Blood Work: CMP, LFT,CPK,CBC in 1-2 weeks
Referrals:
Milton Linder MD [Active, Pulmonary Medicine] - in four to six weeks
UNKNOWN,NO INTERVIEW [Family Provider]
Prescriptions:
New
(DME) Contour Next Test Strips Strip
Qty: 100 2RF
Rx Instructions:
Pt Testing 3 times a day
(DME) lancets [Microlet Lancet] Misc
Qty: 100 2RF
Rx Instructions:
Pt testing 3 times a day
(DME) pen needle, diabetic [Dasha 2nd Gen Pen Needle] 32 gauge x 532' Needle
Qty: 200 0RF
Rx Instructions:
Pt taking Insulin daily
Eliquis DVT-PE Treat 30D Start 5 mg (74 tabs) tablets,dose pack
5 mg PO DIRECTED Qty: 74 0RF
Rx Instructions:
Take as directed
lisinopril 10 mg Tablet
10 mg PO DAILY Qty: 30 0RF
metoprolol succinate 25 mg Tablet Extended Release 24 Hr
25 mg PO DAILY Qty: 30 0RF
glipizide 5 mg Tablet
5 mg PO BID@0800,1700 Qty: 60 0RF
insulin glargine [Lantus Solostar U-100 Insulin] 100 unit/mL (3 mL) insulin pen
10 unit SC DAILY Qty: 15 0RF
atorvastatin [Lipitor] 20 mg tablet
20 mg PO DAILY Qty: 30 0RF
Continued
sildenafil 100 mg tablet
100 mg PO PRN PRN (Reason: erectile dysfunction)
nifedipine 60 mg tablet extended release
60 mg PO DAILY
fluticasone propionate 50 mcg/actuation spray,suspension
1 spray INTRANASAL DAILYPRN PRN (Reason: congestion)
vitamin E 268 mg (400 unit) Capsule
268 mg PO DAILY
cholecalciferol (vitamin D3) [Vitamin D3] 25 mcg (1,000 unit) Tablet
25 mcg PO DAILY
Breztri Aerosphere 160-9-4.8 mcg/actuation HFA aerosol inhaler
1 inh INHALATION BID
fluvoxamine 100 mg Tablet
200 mg PO HS
Patient Comments:
[facility]
montelukast 10 mg Tablet
10 mg PO HS
Discontinued
atorvastatin 40 mg tablet
20 mg PO DAILY
Discharge Orders:
Discharge Patient (As Directed); Ordered 11/10/24
Ordered By: Calin Gilliland
Discharge Date and Time
Print Language: SAMOAN
[2024-11-10 19:49] LABS: Hepatitis B Surface Antigen Negative (Negative); Hepatitis C Antibody Negative (Negative)
== END 2024-11-10 13:51 | disposition home or self-care (01) | DRG 175 ==
LOC: 4 EAST ACU 14:13
PROVIDERS: Nurse Practitioner Primary Care; Radiology Vascular & Interventional Radiology; ADMITTING PHYSICIAN Internal Medicine; ATTENDING PHYSICIAN Internal Medicine; CONSULT PHYSICIAN Internal Medicine Critical Care Medicine; CONSULT PHYSICIAN Specialist; EMERGENCY PHYSICIAN Emergency Medicine
PROC: 3E06317 Introduction of Other Thrombolytic into Central Artery, Percutaneous Approach (ICD-10-PCS; 2024-11-07)
PROC: B51 Imaging, Veins, Fluoroscopy (ICD-10-PCS; 2024-11-07)
PROC: 4A033B3 Measurement of Arterial Pressure, Pulmonary, Percutaneous Approach (ICD-10-PCS; 2024-11-07)
PROC: B31S1ZZ Fluoroscopy of Right Pulmonary Artery using Low Osmolar Contrast (ICD-10-PCS; 2024-11-08)
PROC: 5A09357 Assistance with Respiratory Ventilation, Less than 24 Consecutive Hours, Continuous Positive Airway Pressure (ICD-10-PCS; 2024-11-08)
DX: I26.99 Other pulmonary embolism without acute cor pulmonale (principal); G92.9 Unspecified toxic encephalopathy; J96.01 Acute respiratory failure with hypoxia; I16.1 Hypertensive emergency; N17.9 Acute kidney failure, unspecified; Z68.42 Body mass index [BMI] 45.0-49.9, adult; G93.1 Anoxic brain damage, not elsewhere classified; I10 Essential (primary) hypertension; E66.9 Obesity, unspecified; E11.65 Type 2 diabetes mellitus with hyperglycemia; E78.00 Pure hypercholesterolemia, unspecified; G47.33 Obstructive sleep apnea (adult) (pediatric); J45.909 Unspecified asthma, uncomplicated; N52.9 Male erectile dysfunction, unspecified; Z79.899 Other long term (current) drug therapy
CPT/HCPCS: 36014; 36620; 37214; 70450; 71275; 74174; 75743; 76775; 76937; 80048; 80053; 81003; 81015; 82088; 82570; 82962; 83036; 83516; 83735; 83880; 84156; 84244; 84300; 84484; 84550; 85025; 85027; 85384; 85610; 85730; 86063; 86160; 86704; 86706; 86803; 87340; 87389; 93005; 93306; 93970; 94640; 94660; 99152; 99153; 99291; C1769; J2997; Q9967